=== PATIENT | female | born 1945 | race Caucasian/White ===

== ENCOUNTER 2020-05-20 11:19 | Emergency (ER) | payer MEDICARE, SELFPAY ==
--- NOTE | ~2020-05-20 | XR_ITS ---
XR chest 1V portable 05/20/2020 11:56 Indication: Shortness of breath and chest pain Procedure: AP portable chest Comparison: Comparison to multiple prior studies sequentially, with oldest reviewed study dated 08/03. Findings: Heart size normal. Right basilar atelectasis. No focal pneumonia, edema, pleural effusion o r pneumothorax. There is atherosclerosis of the aorta. Impression: 1: No acute cardiopulmonary disease. Reviewed, dictated and finalized at location B. Impression: 1: No acute cardiopulmonary disease.
--- NOTE | 2020-05-20 11:31 | ECG_ITS ---
Measurements Intervals [place] Rate: 68 P: 77 ND: 190 QRS: 66 QRSD: 102 T: 98 QT: 393 QTc: 420 Interpretive Statements SINUS RHYTHM EARLY PRECORDIAL R/S TRANSITION NONSPECIFIC T-WAVE ABNORMALITY- LAT/HIGH LAT LEADS BORDERLINE ECG Electronically Signed On 05-20-2020 11:50:57 CDT by Manjit Swain D.O.
--- NOTE | 2020-05-20 11:35 | ED.CHESTPAIN ---
HPI - Chest Pain General Chief Complaint: Chest Pain Stated Complaint: Trouble breathing chest pain left arm pain Time Seen by Provider: 05/20/20 11:35 Source: patient Mode of arrival: ambulatory Limitations: no limitations History of Present Illness HPI narrative: 74-year-old woman with a history of atrial fibrillation comes in today complaining of pain in her chest that radiates to her left arm, even beyond the elbow. Patient states that started approximately 9:00 a.m.. She feels short of breath, nauseated, lightheaded and sweaty. She denies syncope. She states that she often feels short of breath. MD complaint: chest pain Onset (ago): hour(s) (2.5) Timing of current episode: episodic and other ( Patient is vague about how often she has episodes of shortness of breath and or chest pain) Prior episodes: Yes Onset: during rest Pain location: substernal Pain radiation: left arm Severity: moderate Quality: tightness Relieving factors: nothing Exacerbating factors: nothing Associated symptoms: nausea, diaphoresis and dyspnea Treatment prior to arrival: none Risk Factors Coronary artery disease risk factors: smoking history, hyperlipidemia and hypertension Related Data Home Medications Medication Instructions Recorded Confirmed alprazolam 0.5 mg PO PRN PRN 05/20/20 05/20/20 aspirin [Adult Aspirin Regimen] 81 mg PO DAILY 05/20/20 05/20/20 losartan-hydrochlorothiazide 1 tablet PO DAILY 05/20/20 05/20/20 pravastatin 20 mg PO DAILY 05/20/20 05/20/20 propafenone 150 mg PO Q8H 05/20/20 05/20/20 Allergies Allergy/AdvReac Type Severity Reaction Status Date / Time amoxicillin [From Augmentin] AdvReac Fatigued Verified 05/20/20 12:09 clavulanic acid AdvReac Fatigued Verified 05/20/20 12:09 [From Augmentin] montelukast AdvReac Abdominal Verified 05/20/20 12:09 Pain Review of Systems Constitutional: Constitutional: Denies chills and Denies fever(s) Eyes: Eyes: Denies change in vision and Denies photophobia ENT: Denies dysphagia, Denies nasal congestion and Denies sore throat Cardiovascular: Cardiovascular: Reports as per HPI, Reports chest pain and Reports radiating jaw, neck or arm pain Respiratory: Respiratory: Denies cough, Reports dyspnea and Denies wheezing Gastrointestinal: Gastrointestinal: Denies abdominal pain, Reports nausea and Denies vomiting Genitourinary: Genitourinary: Denies nocturia and Denies dysuria Musculoskeletal: Musculoskeletal: Denies arthralgias and Denies joint swelling Integumentary/Breasts: Skin/Breast: Denies pruritus, Denies erythema and Denies rash Neurologic: Denies vertigo, Denies dizziness and Denies syncope Psychiatric: Psychiatric: Reports anxiety and Denies depression Hematologic/Lymphatic: Hematologic/Lymphatic: Denies easy bleeding and Denies easy bruising Allergic/Immunologic: Allergic/Immunologic: Denies lip swelling and Denies wheezing PMFSH Past Medical History Medical History Anxiety Chronic vertigo COPD (chronic obstructive pulmonary disease) Diverticulosis GERD (gastroesophageal reflux disease) Hypercholesteremia Hypertension Low back pain Normal nuclear stress test 03/2017 Paroxysmal atrial fibrillation Renal cyst, right Surgical History Surgical History H/O cardiac radiofrequency ablation for afib History of repair of hiatal hernia Social History Social History Smoking status: Current every day smoker Alcohol intake: never Substance use: never Living arrangements: with family Exam Const: Other: Moderate acute distress. Anxious, tearful at times. HENMT: Mouth: Yes moist mucous membranes Throat: posterior oropharynx normal Eyes: Conjunctivae: conjunctivae normal Pupils: Equal, round and reactive pupils present EOM: EOMs intact bilaterally Resp: Effort &
[2020-05-20 11:40] VITALS: BP 176/92; PULSE 70; RESP 14; TEMP 36.8; O2SAT 95
[2020-05-20] MEDS: ASPIRIN 81 MG CHEWABLE TABLET 324 MG PO (11:46)
[2020-05-20] MEDS: ONDANSETRON INJ 4 MG/2 ML VIAL IV PUSH (11:47)
[2020-05-20] MEDS: NITROGLYCERIN OINTMENT 1 INCH DOSE 0.5 INCH TRANSDERM (11:47)
--- NOTE | 2020-05-20 11:52 | PC.NURSE ---
morphine on hold to see if nitropaste helps chest pain. Pt states that she does not want anything that will keep her from driving herself home because she is fine and she just wants to go home and go to bed and she does not want to stay here. edp aware.
[2020-05-20 11:53] LABS: Basophils Absolute Auto 0.04 K/mm3 (0.00-0.10); Basophils Percent Auto 0.4 % (0.0-1.0); Hematocrit 41.6 % (35.0-42.0); Hemoglobin 14.8 g/dL (11.7-13.8); Immature Granulocyte Absolute 0.03 K/mm3 (0.00-0.00); Immature Granulocyte Percent A 0.3 % (0.0-0.0); Lymphocytes Absolute Auto 3.74 K/mm3 (1.10-4.50); Lymphocytes Percent Auto 36.7 % (18.0-42.0); Mean Corpuscular HGB Conc 35.6 g/dL (32.0-36.0); Mean Corpuscular Hemoglobin 33.6 pg (27.0-31.0); Mean Corpuscular Volume 94.3 fL (78.0-102.0); Mean Platelet Volume 8.6 fl (9.2-11.8); Monocytes Absolute Auto 0.62 K/mm3 (0.10-0.90); Monocytes Percent Auto 6.1 % (2.0-11.0); Neutrophils Absolute Auto 5.7 K/mm3 (1.7-7.2); Neutrophils Percent Auto 55.5 % (50.0-70.0); Platelet Count Result 271 K/mm3 (150-420); Red Blood Count 4.41 M/mm3 (4.20-5.40); Red Cell Distribution Width 12.7 % (11.6-14.4); White Blood Count 10.2 K/mm3 (4.8-10.8)
[2020-05-20 11:55] VITALS: BP 156/95; PULSE 65; RESP 14; TEMP 36.8; O2SAT 95
[2020-05-20 12:06] LABS: Partial Thromboplastin Time 24.7 SEC (22.3-31.6); Prothrombin Time 10.3 Seconds (9.64-11.0)
[2020-05-20 12:10] LABS: Alanine Aminotransferase 28 U/L (14-59); Albumin Level 3.7 g/dL (3.4-5.0); Alkaline Phosphatase 71 U/L (46-116); Anion Gap 10.4 mmol/L (7-16); Aspartate Amino Transferase 24 U/L (15-37); Bilirubin,Total 0.7 mg/dL (0.00-1.00); Blood Urea Nitrogen 12 mg/dL (7-18); Calcium 8.9 mg/dL (8.5-10.1); Carbon Dioxide 28 mmol/L (21-32); Chloride 95 mmol/L (98-108); Estimated CRCL calculation 54 ml/min; Estimated Glomerular Filt Rate > 60; Glucose 111 mg/dL (70-99); Lipase 72 U/L (73-393); Osmolality Calculated 270 mOsm/kg (285-295); Potassium 3.4 mmol/L (3.5-5.1); Sodium 130 mmol/L (136-145); Total Protein 6.9 g/dL (6.4-8.2)
[2020-05-20 12:12] LABS: BNP 47.3 pg/mL (0-100)
[2020-05-20 12:13] LABS: D Dimer 0.92 mg/L (0.19-0.50)
[2020-05-20 12:15] LABS: Troponin I 0.23 ng/mL (0.00-0.056)
[2020-05-20 12:17] LABS: Add Urine Microscopic? NO; Appearance Urine Clear (Clear); Bilirubin Urine Negative (Negative); Blood Urine Negative (Negative); Color Urine Yellow (Yellow); Glucose Urine UA Negative (Negative); Ketones Urine Negative (Negative); Leukocyte Esterase Ur Negative LEU/UL (Negative); Nitrate Urine Negative (Negative); Protein Urine Negative (Negative); Specific Grav Ur 1.015 (1.010-1.020); Urobilinogen Urine 0.2 mg/dL (0.2-1.0); pH Urine 6.5 (5.0-8.0)
[2020-05-20 12:18] VITALS: BP 140/77; PULSE 63; RESP 20; O2SAT 95
--- NOTE | 2020-05-20 12:21 | PC.NURSE ---
Pt states she is feeling better and is ready to go home. Pt advised that edp will be in to speak with her about her results shortly. Pts home care chaplain Dr. Costa contacted for consult of NSTEMI.
[2020-05-20 12:25] LABS: Amphetamine Screen Urine Negative (Negative); Barbiturate Screen Urine Negative (Negative); Benzodiazepines Screen Urine Positive (Negative); Cannabinoid Screen Urine Negative (Negative); Cocaine Screen Urine Negative (Negative); Methadone Screen Urine Negative (Negative); Opiate Screen Urine Negative (Negative); Phencyclidine Screen Urine Negative (Negative)
[2020-05-20] MEDS: HEPARIN SODIUM 5,000 UNITS/ML VIAL 4000 UNITS IV PUSH (12:41)
[2020-05-20] MEDS: HEPARIN SOD/D5W 100 UNITS/ML 25,000 UNITS/250 ML BAG 9 UNITS (12:45)
--- NOTE | 2020-05-20 12:45 | PC.NURSE ---
Dr. Lovett speaking with Dr. De Paz at [facility]. 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
--- NOTE | 2020-05-20 13:00 | PC.NURSE ---
Pt c/o headache, morphine offered. pt declined
[2020-05-20 13:34] VITALS: PULSE 72
[2020-05-20] MEDS: METOPROLOL TARTRATE 25 MG TABLET PO (13:34)
--- NOTE | 2020-05-20 13:37 | PC.NURSE ---
Roopa from [facility] called and room assignment received. Pt to go to ICU room 5.
[2020-05-20 14:11] VITALS: BP 149/66; PULSE 66; RESP 18; O2SAT 95
== END 2020-05-20 14:16 | disposition short-term general hospital (02) ==
PROVIDERS: Emergency Provider Emergency Medicine; PCP Internal Medicine
DX: I21.4 Non-ST elevation (NSTEMI) myocardial infarction (principal); E87.1 Hypo-osmolality and hyponatremia; F41.9 Anxiety disorder, unspecified; I10 Essential (primary) hypertension; J44.9 Chronic obstructive pulmonary disease, unspecified; K21.9 Gastro-esophageal reflux disease without esophagitis; E78.00 Pure hypercholesterolemia, unspecified; F17.200 Nicotine dependence, unspecified, uncomplicated; Z79.899 Other long term (current) drug therapy; R06.02 Shortness of breath
CPT/HCPCS: 36415; 71045; 80053; 80307; 81003; 83690; 83880; 84484; 85025; 85380; 85610; 85730; 93005; 96365; 96375; 99285; A9270; J1644; J2405

== ENCOUNTER 2020-07-22 12:38 | Outpatient (CLI) | payer MEDICARE, SELFPAY ==
[2020-07-22 13:22] LABS: BNP 80.9 pg/mL (0-100)
[2020-07-22 13:40] LABS: Anion Gap 8 mmol/L (8-16); Blood Urea Nitrogen 10 mg/dL (7-18); Calcium 8.8 mg/dL (8.5-10.1); Carbon Dioxide 30 mmol/L (21-32); Chloride 100 mmol/L (98-108); Estimated Glomerular Filt Rate > 60; Glucose 115 mg/dL (70-99); Osmolality Calculated 286 mOsm/kg (285-295); Potassium 3.7 mmol/L (3.5-5.1); Sodium 138 mmol/L (136-145)
== END 2020-07-22 12:39 | disposition home or self-care (01) ==
LOC: CHSLAB 12:40
PROVIDERS: PCP Internal Medicine; Visit Provider Internal Medicine Cardiovascular Disease
DX: I25.10 Atherosclerotic heart disease of native coronary artery without angina pectoris (principal); R06.02 Shortness of breath; J44.9 Chronic obstructive pulmonary disease, unspecified
CPT/HCPCS: 36415; 80048; 83880

== ENCOUNTER 2021-01-14 09:46 | Outpatient (CLI) | payer MEDICARE, SELFPAY ==
--- NOTE | ~2021-01-14 | MR_ITS ---
EXAMINATION: MR lumbar spine wo con DATE: 01/14/2021 10:58 INDICATION: Lumbar radiculopathy. TECHNIQUE: Magnetic resonance imaging (MRI) of the lumbar spine was performed without intravenous con trast. Sequences included sagittal T2-weighted FSE, sagittal T2-weighted FS FSE, sagittal T1-weighted FSE, and axial T2-weighted FSE. COMPARISON: None FINDINGS: There is 10 degrees dextroscoliosis of lumbar spine. Vertebral body heights are normal. The re is mildly decreased disc height at L1-L2 and L2-L3 and moderately decreased disc height at L4-L5. The distal spinal cord signal intensity is normal. The conus medullaris is at L1. There is an 8.1 cm cyst in right kidney. The following disc levels are specifically discussed: L1-L2: The disc is bulging and has an annular fissure. There is mild right facet joint osteoarthritis . There is no neural foraminal stenosis. There is mild central canal stenosis. L2-L3: The disc is bulging. There is moderate right and mild left facet joint osteoarthritis. There i s mild bilateral neural foraminal stenosis. There is mild central canal stenosis. L3-L4: The disc is bulging and has an annular fissure. There is mild right and moderate left facet colton int osteoarthritis. There is mild right and moderate left neural foraminal stenosis. There is mild ce ntral canal stenosis. L4-L5: The disc is bulging and has an annular fissure. There is severe bilateral facet joint osteoart hritis. There is moderate bilateral neural foraminal stenosis. There is mild central canal stenosis. L5-S1: There is a left foraminal protrusion. There is severe right and moderate left facet joint oste oarthritis. There is mild bilateral neural foraminal stenosis. There is no central canal stenosis. IMPRESSION: 1. Moderate lumbar spondylosis. 2. Lumbar dextroscoliosis. Reviewed, dictated and finalized at location A. [employer]
--- NOTE | ~2021-01-14 | US_ITS ---
EXAMINATION: US carotid duplex BI DATE: 01/14/2021 12:47 INDICATION: Carotid stenosis. TECHNIQUE: Grayscale, color Doppler, and pulsed Doppler images of the cervical carotid arteries were obtained. The degree of vessel stenosis is placed in one of the following categories: normal, <50%, 5 0-69%, >=70% but less than near-occlusion, near-occlusion, or total occlusion. Note that percent sten osis relative to normal distal artery lumen diameter is indirectly measured from velocity measurement s as described by Tomas, et al. Radiology 2003; 229:340-346. COMPARISON: Ultrasound 09/06/2017 FINDINGS: RIGHT: The right common carotid artery (CCA) peak systolic velocity (PSV) is 76 cm/s. The right internal car otid artery (ICA) PSV is 60 cm/s. The right ICA end-diastolic velocity (EDV) is 23 cm/s. The right IC A/CCA PSV ratio is 0.8. Grayscale and color Doppler images yield an estimate of <50% diameter reducti on from plaque in the ICA. There is antegrade flow in the right vertebral artery. LEFT: The left CCA PSV is 65 cm/s. The left ICA PSV is 54 cm/s. The left ICA EDV is 18 cm/s. The left ICA/C CA PSV ratio is 0.8. Grayscale and color Doppler images yield an estimate of <50% diameter reduction from plaque in the ICA. There is antegrade flow in the left vertebral artery. IMPRESSION: 1. <50% stenosis in the right internal carotid artery. 2. <50% stenosis in the left internal carotid artery. Reviewed, dictated and finalized at location A. 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
== END 2021-01-14 09:47 | disposition home or self-care (01) ==
LOC: CHSIMG 09:48
PROVIDERS: PCP Internal Medicine; Visit Provider Internal Medicine
DX: M54.9 Dorsalgia, unspecified (principal); M54.10 Radiculopathy, site unspecified; M48.00 Spinal stenosis, site unspecified; I65.29 Occlusion and stenosis of unspecified carotid artery
CPT/HCPCS: 72148; 93880

== ENCOUNTER 2021-03-29 14:19 | Emergency (ER) | payer MEDICARE, SELFPAY ==
[2021-03-29] VITALS (9 sets, daily range): BP systolic 91–114; BP diastolic 54–78; PULSE 74–98; RESP 20; TEMP 36.7; O2SAT 93–100
--- NOTE | ~2021-03-29 | CT_ITS ---
EXAMINATION: CT abdomen pelvis w con INDICATION: Abdominal pain TECHNIQUE: Computed tomographic images of the abdomen and pelvis were obtained after the administrati on of 100 cc of Omnipaque 350 intravenous contrast. The dose-length product (DLP) was 449.72 mGy-cm. Automated exposure control and iterative reconstruction technique were employed. COMPARISON: 05/15/2019 FINDINGS: Minimal dependent atelectasis is present in the lung bases. The heart size is normal. Calci fied coronary artery atherosclerosis is noted. There are surgical changes near the gastroesophageal j unction. The gallbladder is surgically absent. There is a 5 mm cyst of the right hepatic lobe. The sp bernarda, pancreas, and adrenal glands are normal. The left kidney is unremarkable. There is a 7.7 cm cys t of the otherwise normal right kidney. There is calcified atherosclerosis of the aorta and many of t he other arteries. There is extensive colonic diverticulosis. There is wall thickening of the ascendi ng colon near the junction with the terminal ileum with adjacent inflammatory change and foci of extr aluminal gas. No pathologically enlarged abdominal or pelvic lymph nodes are identified. There is mil d dilation at the distal aspect of the second portion of the duodenum without focal transition, likel y ileus. There is severe lumbar spondylosis. IMPRESSION: 1. Findings consistent with perforated diverticulitis of the ascending colon near the terminal ileum. These findings were discussed with Dr. Nahid Mir MD in the Emergency Department at 1645 hours on 03/29/2021. Reviewed, dictated and finalized at location A. IMPRESSION: 1. Findings consistent with perforated diverticulitis of the ascending colon ne ar the terminal ileum. These findings were discussed with Dr. Nahid Mir MD [facility] the Emergency Department at 1645 hours on 03/29/2021.
--- NOTE | 2021-03-29 15:07 | ED.WEAKNESS ---
HPI - Weakness General Chief complaint: Weakness Stated complaint: weak low bp Time Seen by Provider: 03/29/21 14:50 Source: patient Mode of arrival: ambulatory Limitations: no limitations History of Present Illness HPI Narrative: Patient comes in with ongoing, severe, RLQ abdominal pain which has been going on for several days. It has been worse today, which brings her in. It has been sharp with stabbing pain in the RLQ and also in the right flank, over the kidney area. No fever, no chills. She has been nauseated today as well for the past several hours. Nothing has helped the pain at home. No modifying factors. no other associated signs or symptoms. MD Complaint: generalized weakness Onset (ago): day(s) Duration: constant and other (RLQ pain for the past 48 hours, worse today) Migration: none Severity: moderate Quality: sharp Relieving factors: rest Exacerbating factors: movement Context: recent surgery Associated symptoms: nausea/vomiting and other (RLQ abdominal pain) Related Data Home Medications Medication Instructions Recorded Confirmed losartan-hydrochlorothiazide 1 tablet PO DAILY 05/20/20 03/29/21 pravastatin 20 mg PO DAILY 05/20/20 03/29/21 propafenone 150 mg PO Q8H 05/20/20 03/29/21 Allergies Allergy/AdvReac Type Severity Reaction Status Date / Time amoxicillin [From Augmentin] AdvReac Fatigued Verified 03/29/21 16:16 clavulanic acid AdvReac Fatigued Verified 03/29/21 16:16 [From Augmentin] montelukast AdvReac Abdominal Verified 03/29/21 16:16 Pain Review of Systems Constitutional: Constitutional: Reports no additional constitutional complaints Eyes: Eyes: Reports no additional eye complaints ENT: Reports system reviewed and no additional complaints, except as documented Cardiovascular: Cardiovascular: Reports no additional cardiovascular complaints Respiratory: Respiratory: Reports no additional respiratory complaints Gastrointestinal: Gastrointestinal: Reports no additional gastrointestinal complaints and Reports abdominal pain Genitourinary: Genitourinary: Reports no additional female genitourinary complaints Musculoskeletal: Musculoskeletal: Reports no additional musculoskeletal complaints Integumentary/Breasts: Skin/Breast: Reports system reviewed and no additional complaints, except as docu Neurologic: Reports system reviewed and no additional complaints, except as documented Psychiatric: Psychiatric: Reports no additional psychiatric complaints Endocrine: Endocrine: Reports no additional endocrine complaints Hematologic/Lymphatic: Hematologic/Lymphatic: Reports no additional hematologic/lymphatic complaints Allergic/Immunologic: Allergic/Immunologic: Reports no additional allergic/immunologic complaints [facility] Past Medical History Medical History Anxiety Chronic vertigo COPD (chronic obstructive pulmonary disease) Diverticulosis GERD (gastroesophageal reflux disease) Hypercholesteremia Hypertension Low back pain Normal nuclear stress test 03/2017 Paroxysmal atrial fibrillation Renal cyst, right Surgical History Surgical History H/O cardiac radiofrequency ablation for afib History of repair of hiatal hernia Family History Family History (Updated 03/29/21 @ 18:07 by Nahid Mir MD) Other Family history non-contributory Social History Social History Smoking status: Current every day smoker Alcohol intake: never Substance use: never Gender identity (if verbalized by the patient): Female Exam Const: General: healthy appearing, no acute distress and alert Orientation/consciousness: patient oriented x3 HENMT: Head: normal to inspection Ears: external ears normal and TM's normal bilaterally General nose exam: Normal external nose present Mouth: Yes Normal oral and palatal mucosa pres
[2021-03-29] MEDS: KETOROLAC 30 MG/ML VIAL (*BKC) IV PUSH (15:10)
[2021-03-29] MEDS: ONDANSETRON INJ 4 MG/2 ML VIAL IV PUSH (15:10)
[2021-03-29 15:19] LABS: Add Urine Microscopic? YES; Appearance Urine Sl Cloudy (Clear); Bilirubin Urine 1+ (Negative); Blood Urine Negative (Negative); Glucose Urine UA Negative (Negative); Ketones Urine 1+ (Negative); Leukocyte Esterase Ur Trace LEU/UL (Negative); Nitrate Urine Negative (Negative); Protein Urine 2+ (Negative); Specific Grav Ur >= 1.030 (1.010-1.020)
[2021-03-29 15:21] LABS: Basophils Absolute Auto 0.04 K/mm3 (0.00-0.10); Basophils Percent Auto 0.3 % (0.0-1.0); Eosinophils Absolute Auto 0.02 K/mm3 (0.02-0.50); Eosinophils Percent Auto 0.1 % (1.0-6.0); Hematocrit 39.9 % (35.0-42.0); Hemoglobin 14.1 g/dL (11.7-13.8); Immature Granulocyte Absolute 0.11 K/mm3 (0.00-0.00); Immature Granulocyte Percent A 0.7 % (0.0-0.0); Lymphocytes Absolute Auto 2.63 K/mm3 (1.10-4.50); Mean Corpuscular HGB Conc 35.3 g/dL (32.0-36.0); Mean Corpuscular Hemoglobin 33.7 pg (27.0-31.0); Mean Corpuscular Volume 95.2 fL (78.0-102.0); Mean Platelet Volume 8.7 fl (9.2-11.8); Monocytes Absolute Auto 1.05 K/mm3 (0.10-0.90); Monocytes Percent Auto 6.8 % (2.0-11.0); Neutrophils Absolute Auto 11.6 K/mm3 (1.7-7.2); Neutrophils Percent Auto 75.1 % (50.0-70.0); Platelet Count Result 263 K/mm3 (150-420); Red Blood Count 4.19 M/mm3 (4.20-5.40); Red Cell Distribution Width 13.5 % (11.6-14.4); White Blood Count 15.5 K/mm3 (4.8-10.8)
[2021-03-29 15:22] LABS: Color Urine Amber (Yellow); RBC Urine None seen /hpf (0-2)
[2021-03-29 15:23] LABS: Bacteria Urine 1+ /hpf; Squamous Epithelial Cell Urine Few /hpf (Few)
[2021-03-29 15:33] LABS: Alanine Aminotransferase 31 U/L (14-59); Albumin Level 3.3 g/dL (3.4-5.0); Alkaline Phosphatase 91 U/L (46-116); Amylase 24 U/L (25-115); Anion Gap 9 mmol/L (8-16); Aspartate Amino Transferase 17 U/L (15-37); Bilirubin,Total 0.9 mg/dL (0.00-1.00); Blood Urea Nitrogen 13 mg/dL (7-18); Carbon Dioxide 27 mmol/L (21-32); Chloride 98 mmol/L (98-108); Estimated CRCL calculation 32 ml/min; Estimated Glomerular Filt Rate 44; Glucose 114 mg/dL (70-99); Lipase 36 U/L (73-393); Osmolality Calculated 279 mOsm/kg (285-295); Potassium 3.6 mmol/L (3.5-5.1); Sodium 134 mmol/L (136-145); Total Protein 6.7 g/dL (6.4-8.2)
[2021-03-29 15:35] LABS: Lactic Acid Reflex 0.7 mmol/L (0.4-2.0)
[2021-03-29] MEDS: SODIUM CHLORIDE 0.9% IV 1,000 ML 999 ML IV CONT (16:10)
[2021-03-29] MEDS: metroNIDAZOLE 500 MG/ISO 100ML 500 MG/100 ML BAG 100 MG IVPB (17:49)
[2021-03-29] MEDS: NICOTINE (*PBKC) 21 MG PATCH 1 PATCH TRANSDERM (17:49)
[2021-03-29] MEDS: SODIUM CHLORIDE 0.9% IV 1,000 ML 200 ML IV CONT (19:40)
[2021-03-29] MEDS: PANTOPRAZOLE SODIUM IV 40 MG VIAL IV PUSH (19:45)
== END 2021-03-29 21:24 | disposition short-term general hospital (02) ==
PROVIDERS: Emergency Provider Emergency Medicine; PCP Internal Medicine
DX: K57.92 Diverticulitis of intestine, part unspecified, without perforation or abscess without bleeding (principal); K63.1 Perforation of intestine (nontraumatic); K21.9 Gastro-esophageal reflux disease without esophagitis; E78.00 Pure hypercholesterolemia, unspecified; I10 Essential (primary) hypertension; F17.200 Nicotine dependence, unspecified, uncomplicated
CPT/HCPCS: 36415; 74177; 80053; 81001; 82150; 83605; 83690; 85025; 87040; 87086; 96361; 96365; 96367; 96375; 99285; A9270; C9113; J1885; J2405; J2543; J7030; Q9967

== ENCOUNTER 2021-04-17 09:28 | Outpatient (CLI) | payer MEDICARE, SELFPAY ==
--- NOTE | ~2021-04-17 | CT_ITS ---
EXAMINATION: CT abdomen pelvis w con DATE: 04/17/2021 10:29 INDICATION: Lower abdominal pain. Loss of appetite. Nausea. Follow-up diverticular abscess. TECHNIQUE: Computed tomography (CT) of the abdomen and pelvis was performed with 100 cc Omnipaque 350 intravenous contrast. The dose-length product was 450.19 mGy-cm. Automated exposure control and iter ative reconstruction technique were employed. COMPARISON: CT dated 03/29/2021. FINDINGS: Lung bases are unremarkable. Heart size normal. No significant pleural or pericardial effus ion. There are surgical changes at the gastroesophageal junction. The spleen, pancreas, adrenal glands and left kidney are unremarkable. There are small subcentimeter hypodensities of the liver, most likely benign cysts or hemangiomas. There has been improvement of wa ll thickening of the cecum as well as pericecal inflammation and fluid, consistent with resolving div erticulitis. No obstruction. There is mild degenerative changes of the hips. There is lower lumbar an d thoracic spondylosis. There is moderate osteoarthritis of the hips. There is moderate diffuse ather osclerosis. No evidence for aneurysm. There is a right renal cyst measuring measuring 7.8 cm. IMPRESSION: 1. Improving cecal wall thickening as well as surrounding inflammation and fluid, consistent with res olving cecal diverticulitis. Reviewed, dictated and finalized at location B. IMPRESSION: 1. Improving cecal wall thickening as well as surrounding inflammation and flui d, consistent with resolving cecal diverticulitis.
[2021-04-17 09:39] LABS: Basophils Absolute Auto 0.05 K/mm3 (0.00-0.10); Basophils Percent Auto 0.5 % (0.0-1.0); Eosinophils Absolute Auto 0.05 K/mm3 (0.02-0.50); Eosinophils Percent Auto 0.5 % (1.0-6.0); Hematocrit 44.3 % (35.0-42.0); Hemoglobin 15.1 g/dL (11.7-13.8); Immature Granulocyte Absolute 0.04 K/mm3 (0.00-0.00); Immature Granulocyte Percent A 0.4 % (0.0-0.0); Lymphocytes Absolute Auto 3.94 K/mm3 (1.10-4.50); Lymphocytes Percent Auto 39.9 % (18.0-42.0); Mean Corpuscular HGB Conc 34.1 g/dL (32.0-36.0); Mean Corpuscular Hemoglobin 33.1 pg (27.0-31.0); Mean Corpuscular Volume 97.1 fL (78.0-102.0); Mean Platelet Volume 8.1 fl (9.2-11.8); Monocytes Absolute Auto 0.58 K/mm3 (0.10-0.90); Monocytes Percent Auto 5.9 % (2.0-11.0); Neutrophils Absolute Auto 5.2 K/mm3 (1.7-7.2); Neutrophils Percent Auto 52.8 % (50.0-70.0); Platelet Count Result 348 K/mm3 (150-420); Red Blood Count 4.56 M/mm3 (4.20-5.40); Red Cell Distribution Width 13.8 % (11.6-14.4); White Blood Count 9.9 K/mm3 (4.8-10.8)
[2021-04-17 09:42] LABS: Add Urine Microscopic? YES; Appearance Urine Clear (Clear); Bilirubin Urine Negative (Negative); Blood Urine Negative (Negative); Color Urine Yellow (Yellow); Glucose Urine UA Negative (Negative); Ketones Urine Negative (Negative); Leukocyte Esterase Ur Trace (Negative); Nitrate Urine Negative (Negative); Protein Urine Negative (Negative); Specific Grav Ur 1.025 (1.010-1.020); Urobilinogen Urine 0.2 mg/dL (0.2-1.0)
[2021-04-17 09:44] LABS: RBC Urine None seen /hpf (0-2); Squamous Epithelial Cell Urine Few /hpf (Few); WBC Urine 0-3 /hpf (0-3)
[2021-04-17 09:45] LABS: Bacteria Urine Trace /hpf; Mucus Urine Few /lpf
[2021-04-17 09:56] LABS: Alanine Aminotransferase 31 U/L (14-59); Albumin Level 3.8 g/dL (3.4-5.0); Alkaline Phosphatase 80 U/L (46-116); Amylase 33 U/L (25-115); Anion Gap 8 mmol/L (8-16); Aspartate Amino Transferase 20 U/L (15-37); Bilirubin,Total 0.6 mg/dL (0.00-1.00); Blood Urea Nitrogen 8 mg/dL (7-18); Calcium 9.4 mg/dL (8.5-10.1); Carbon Dioxide 30 mmol/L (21-32); Chloride 96 mmol/L (98-108); Estimated Glomerular Filt Rate > 60; Glucose 107 mg/dL (70-99); Lipase 47 U/L (73-393); Osmolality Calculated 276 mOsm/kg (285-295); Sodium 134 mmol/L (136-145); Total Protein 7.1 g/dL (6.4-8.2)
== END 2021-04-17 09:29 | disposition home or self-care (01) ==
PROVIDERS: PCP Internal Medicine; Visit Provider Internal Medicine
DX: K57.92 Diverticulitis of intestine, part unspecified, without perforation or abscess without bleeding (principal)
CPT/HCPCS: 36415; 74177; 80053; 81001; 82150; 83690; 85025; Q9967

== ENCOUNTER 2021-09-06 08:18 | Emergency (ER) | payer MEDICARE, SELFPAY ==
--- NOTE | ~2021-09-06 | XR_ITS ---
EXAMINATION: XR chest 1V portable EXAM DATE: 09/06/2021 08:42 INDICATION: Neuro symptoms. TECHNIQUE: Portable AP frontal chest x-ray was obtained. Comparison is made to prior examination from 05/20/2020. FINDINGS: The lungs are clear. There are no pleural effusions. Cardiac silhouette is prominent but magnified on this AP technique. There is no pneumothorax suspected. The bones and soft tissues are unremarkable. IMPRESSION: No acute cardiopulmonary findings. Reviewed, dictated and finalized at location A.
--- NOTE | ~2021-09-06 | CT_ITS ---
EXAMINATION: CT brain wo con EXAM DATE: 09/06/2021 08:36 INDICATION: Right-sided facial droop, body numbness. TECHNIQUE: Spiral CT of the head was performed without contrast. Axial, coronal and sagittal images were reviewed. The dose-length product (DLP) for this examination was 605.33 mGy-cm. The exposure w as tailored according to patient size, and iterative reconstruction (ASIR) was used as additional dos e reduction technique. There is no prior study for comparison. FINDINGS: There is no acute intraparenchymal hemorrhage. No evidence of intraparenchymal brain mass lesion. No evidence of acute infarction. Please note that initial head CT has limited sensitivity f or small or acute infarctions. There is mild periventricular and subcortical hypodensity, nonspecific but probably related to small vessel ischemic disease. There is mild to moderate prominence of the sulci and ventricles related to cerebral atrophy. There is intracranial carotid arteriosclerosis. There are no extra-axial collections. There is no mass effect or midline shift. Patient has had bi lateral ocular lens surgery. Soft tissue is unremarkable. Mild to moderate ethmoid and right maxill jignesh sinus, left sphenoid mucoperiosteal thickening. IMPRESSION: 1. No acute intracranial findings. 2. Chronic age related findings. Reviewed, dictated and finalized at location A.
--- NOTE | 2021-09-06 08:28 | ECG_ITS ---
Measurements Intervals [place] Rate: P: OR: QRS: QRSD: T: QT: QTc: Interpretive Statements SINUS RHYTHM INCOMPLETE RIGHT BUNDLE BRANCH BLOCK T WAVE ABNORMALITY IN LATERAL LEADS- CONSIDER ISCHEMIA ABNORMAL ECG Electronically Signed On 09-07-2021 10:38:00 CDT by Manjit Swain D.O.
[2021-09-06 08:51] LABS: Basophils Absolute Auto 0.05 K/mm3 (0.00-0.10); Basophils Percent Auto 0.6 % (0.0-1.0); Eosinophils Percent Auto 1.3 % (1.0-6.0); Hematocrit 45.6 % (35.0-42.0); Hemoglobin 15.7 g/dL (11.7-13.8); Immature Granulocyte Absolute 0.03 K/mm3 (0.00-0.00); Immature Granulocyte Percent A 0.4 % (0.0-0.0); Lymphocytes Absolute Auto 2.47 K/mm3 (1.10-4.50); Lymphocytes Percent Auto 31.9 % (18.0-42.0); Mean Corpuscular HGB Conc 34.4 g/dL (32.0-36.0); Mean Corpuscular Hemoglobin 32.3 pg (27.0-31.0); Mean Corpuscular Volume 93.8 fL (78.0-102.0); Mean Platelet Volume 8.6 fl (9.2-11.8); Monocytes Absolute Auto 0.57 K/mm3 (0.10-0.90); Monocytes Percent Auto 7.4 % (2.0-11.0); Neutrophils Absolute Auto 4.5 K/mm3 (1.7-7.2); Neutrophils Percent Auto 58.4 % (50.0-70.0); Platelet Count Result 255 K/mm3 (150-420); Red Blood Count 4.86 M/mm3 (4.20-5.40); White Blood Count 7.8 K/mm3 (4.8-10.8)
--- NOTE | 2021-09-06 09:02 | ED.AMS ---
HPI - Altered Mental Status General Chief Complaint: Altered Mental Status Stated Complaint: numbness in right leg, arm and R side of face Time Seen by Provider: 09/06/21 08:21 Source: patient, family and RN notes reviewed Mode of arrival: wheelchair Limitations: no limitations History of Present Illness HPI narrative: Right-sided facial weakness + right upper and lower limb weakness and numbness @ 0500. Sxs had resolved by 0630. Pt also had similar sxs last PM. complaint: weakness (mild weakness in the ED) Onset (ago): hour(s) (3 hrs.) Severity: mild Consistency of symptoms: waxing and waning Context: other (sxs were sudden. ) Associated symptoms: headaches and weakness Treatments prior to arrival: other (none.) Related Data Home Medications Medication Instructions Recorded Confirmed losartan-hydrochlorothiazide 1 tablet PO DAILY 05/20/20 09/06/21 pravastatin 20 mg PO DAILY 05/20/20 09/06/21 propafenone 150 mg PO BID 05/20/20 09/06/21 alprazolam 0.5 mg PO BID PRN 09/06/21 09/06/21 meloxicam 15 mg PO DAILY PRN 09/06/21 09/06/21 pantoprazole 40 mg PO DAILY 09/06/21 09/06/21 potassium chloride 10 meq PO DAILY 09/06/21 09/06/21 Allergies Allergy/AdvReac Type Severity Reaction Status Date / Time amoxicillin [From Augmentin] AdvReac Fatigued Verified 09/06/21 08:47 clavulanic acid AdvReac Fatigued Verified 09/06/21 08:47 [From Augmentin] montelukast AdvReac Abdominal Verified 09/06/21 08:47 Pain Review of Systems Review of Systems: All systems reviewed & are unremarkable except as noted in HPI and below Neurologic: Reports headache(s), Reports focal weakness, Reports numbness and Reports weakness PMFSH Past Medical History Medical History Anxiety Chronic vertigo COPD (chronic obstructive pulmonary disease) Diverticulosis GERD (gastroesophageal reflux disease) Hypercholesteremia Hypertension Low back pain Normal nuclear stress test 03/2017 Paroxysmal atrial fibrillation Renal cyst, right Surgical History Surgical History H/O cardiac radiofrequency ablation for afib History of repair of hiatal hernia Family History Family History Other Family history non-contributory Social History Social History Smoking status: Current every day smoker Alcohol intake: never Substance use: never Gender identity (if verbalized by the patient): Female Exam Const: General: healthy appearing, no acute distress and alert Nutritional Appearance: well nourished Orientation/consciousness: patient oriented x3 Limitations: no limitations HENMT: Head: normal to inspection Ears: external ears normal and TM's normal bilaterally General nose exam: Normal external nose present and Normal nares present Mouth: Yes moist mucous membranes Throat: posterior oropharynx normal Eyes: Pupils: Equal, round and reactive pupils present Neck: Neck: normal visual inspection and no lymphadenopathy Chest: Chest palpation & inspection: normal inspection of the chest Resp: Effort & Inspection: normal respiratory effort Auscultation: clear to auscultation bilaterally Cardio: Rate: regular rate Rhythm: regular rhythm GI: GI Palp: Yes Soft to palpation and No Tenderness to palpation present (GI) Percussion: Yes normal to percussion Auscultation: normal bowel sounds : General: Yes no CVA tenderness Back/Spine/Pelvis: Back: no CVA tenderness Skin: General skin exam: normal color Rashes: no rashes Neuro: General: patient oriented x3, moves all extremities, no meningeal signs, no focal motor deficits and CN's II-XI intact bilaterally Other: no facial droop or slurred speech. Extrem: General: normal to inspection and no pedal edema Psych: Mental Status: mental status grossly normal
[2021-09-06] MEDS: SODIUM CHLORIDE 0.9% IV 1,000 ML 150 ML IV CONT (09:10)
[2021-09-06 09:11] LABS: Lactic Acid Reflex 1.2 mmol/L (0.4-2.0)
[2021-09-06 09:12] LABS: Alanine Aminotransferase 22 U/L (14-59); Albumin Level 3.9 g/dL (3.4-5.0); Alkaline Phosphatase 87 U/L (46-116); Anion Gap 9 mmol/L (8-16); Aspartate Amino Transferase 14 U/L (15-37); Bilirubin,Total 0.6 mg/dL (0.00-1.00); Blood Urea Nitrogen 13 mg/dL (7-18); Calcium 8.9 mg/dL (8.5-10.1); Carbon Dioxide 29 mmol/L (21-32); Chloride 98 mmol/L (98-108); Estimated Glomerular Filt Rate > 60; Glucose 112 mg/dL (70-99); Osmolality Calculated 283 mOsm/kg (285-295); Potassium 3.7 mmol/L (3.5-5.1); Sodium 136 mmol/L (136-145); Troponin I 8.2 ng/L (0.00-60.4)
[2021-09-06 09:20] VITALS: BP 160/100; PULSE 84; RESP 16; TEMP 36.2; O2SAT 96
[2021-09-06 10:00] VITALS: BP 148/88; PULSE 78; RESP 16; TEMP 36.5; O2SAT 96
--- NOTE | 2021-09-06 10:02 | PC.NURSE ---
amb steadily to bathroom with minimal assistance. voided without difficulty
[2021-09-06 10:04] LABS: Add Urine Microscopic? NO; Appearance Urine Clear (Clear); Bilirubin Urine Negative (Negative); Blood Urine Negative (Negative); Color Urine Light Yellow (Yellow); Glucose Urine UA Negative (Negative); Ketones Urine Negative (Negative); Leukocyte Esterase Ur Negative (Negative); Nitrate Urine Negative (Negative); Protein Urine Negative (Negative); Specific Grav Ur 1.015 (1.010-1.020); Urobilinogen Urine 0.2 mg/dL (0.2-1.0)
[2021-09-06] MEDS: ACETAMINOPHEN 325 MG TABLET 650 MG PO (10:32)
[2021-09-06 11:00] VITALS: BP 160/95; PULSE 80; RESP 15; TEMP 36.8; O2SAT 97
[2021-09-06 12:07] LABS: SARS-CoV-2 RNA PCR Negative (Negative)
== END 2021-09-06 11:35 | disposition home or self-care (01) ==
PROVIDERS: Emergency Provider Emergency Medicine; PCP Internal Medicine
DX: G45.9 Transient cerebral ischemic attack, unspecified (principal); Z20.822 Contact with and (suspected) exposure to COVID-19; J44.9 Chronic obstructive pulmonary disease, unspecified; K21.9 Gastro-esophageal reflux disease without esophagitis; E78.00 Pure hypercholesterolemia, unspecified; I10 Essential (primary) hypertension; F17.200 Nicotine dependence, unspecified, uncomplicated
CPT/HCPCS: 36415; 70450; 71045; 80053; 81003; 83605; 84484; 85025; 93005; 96360; 96361; 99283; 99284; A9270; C9803; J7030; U0003; U0005

== ENCOUNTER 2022-03-16 08:01 | Outpatient (CLI) | payer MEDICARE, SELFPAY ==
--- NOTE | ~2022-03-16 | CT_ITS ---
EXAMINATION: CT abdomen pelvis w con DATE: 03/16/2022 09:09 INDICATION: Mid to right upper abdominal pain TECHNIQUE: Computed tomography (CT) of the abdomen and pelvis was performed with 100 CC Omnipaque 350 intravenous contrast. Automated exposure control and iterative reconstruction technique were employe d. Exam dose: 410.80 mGy-cm total exam DLP. COMPARISON: 04/17/2021 CT abdomen pelvis FINDINGS: There is mild discoid atelectasis or scarring at the base of the middle lobe and anterior b asilar segment of the right lower lobe. No infiltrate or consolidation at the lung bases. Mild cardiomegaly. No pericardial or pleural effusion. Status post hiatal hernia repair. Status post cholecystectomy. No bile duct or pancreatic duct dilatation. There is an approximately 6 mm right hepatic cyst. The liver, spleen, pancreas and adrenal glands are otherwise unremarkable. Approximately 7.5 cm upper pole right renal cyst. The kidneys are otherwise unremarkable. No urinary tract calculus or hydroureteronephrosis. There is calcification of the abdominal aorta and prominent calcification at the origin the celiac, superior mesenteric and renal arteries. No abdominal aortic a neurysm. There is calcification of the iliac and femoral arteries. No intraperitoneal or retroperitoneal or pelvic mass lesion or adenopathy or ascites. Status post hysterectomy. Surgical clips are noted in the left pelvic area. Surgical clips are noted adjacent to the right colon. There are innumerable diverticula throughout the colon; no CT evidence of diverticulitis. There are fluid containing small bowel segments and some small bowel air-fluid levels which may repre sent enteritis or mild adynamic ileus. No bowel obstruction or intraperitoneal free air. Very small fat-containing umbilical hernia. Diffuse osteopenia. Degenerative changes of the lower thoracic and lumbar spine. Bilateral hip osteoa rthritis. IMPRESSION: Status post partial right colon resection for history of diverticulitis Extensive diverticulosis throughout the colon Nondilated fluid containing small bowel segments and occasional air-fluid levels which may be seconda ry to enteritis or mild adynamic ileus No bowel obstruction or intraperitoneal free air Status post cholecystectomy Status post hiatal hernia repair Status post hysterectomy 6 mm right hepatic cyst and 7.5 cm upper pole right renal cyst Reviewed, dictated and finalized at [facility]. Reviewed, dictated and finalized at location B. IMPRESSION: Status post partial right colon resection for history of diverticu litis Extensive diverticulosis throughout the colon Nondilated fluid containing small bowel segments and occasional air-fluid level s which may be secondary to enteritis or mild adynamic ileus No bowel obstruction or intraperitoneal free air Status post cholecystectomy Status post hiatal hernia repair Status post hysterectomy 6 mm right hepatic cyst and 7.5 cm upper pole right renal cyst
[2022-03-16 08:25] LABS: Estimated Glomerular Filt Rate > 60
== END 2022-03-16 08:02 | disposition home or self-care (01) ==
LOC: CHSIMG 08:03
PROVIDERS: PCP Internal Medicine; Visit Provider Internal Medicine
DX: R10.9 Unspecified abdominal pain (principal)
CPT/HCPCS: 74177; Q9967

== ENCOUNTER 2022-04-28 08:21 | Outpatient (CLI) | payer MEDICARE, SELFPAY ==
--- NOTE | ~2022-04-28 | US_ITS ---
EXAMINATION: US art doppler w press LE BI DATE: 04/28/2022 09:52 INDICATION: Lower limb pain. Peripheral vascular disease risk factors of hypercholesterolemia, hypert ension and smoking. TECHNIQUE: Segmental pressures and plethysmographic and Doppler waveforms of the brachial and lower e xtremity arteries were obtained. COMPARISON: None. FINDINGS: Right and left brachial artery pressures of 152 mm Hg and 154 mm Hg, respectively, are concordant (no rmal difference <= 30 mmHg). The right and left high-thigh pressure indices were unable to be obtaine d due to inability to occlude the vessels in either thigh (normal > 1.2). The right ankle-brachial index (SARAH) is 1.25 (normal >= 0.9-1). The right great toe-brachial index (T BI) is 1.03 (normal >= 0.6-0.8). The right lower extremity segmental pressure gradients are increased between the right posterior tibial artery and the right dorsalis pedis and [id number] popliteal arteries (normal gradients <= 20-30 mmHg between adjacent levels on the same leg or the same levels o n the two legs). Arterial waveforms are triphasic at the right common femoral and superficial femoral arteries and biphasic in the more distal arteries with brisk systolic upstrokes throughout. The left SARAH is 1.08. The left TBI is 0.88. The left lower extremity segmental pressure gradients are increased between the arteries at the left ankle and the left [id number] popliteal artery and ri ght dorsalis pedis artery at the contralateral right ankle. Arterial waveforms are triphasic at the l eft common femoral artery and triphasic at the remaining arteries in the right lower limb with brisk systolic upstrokes throughout. IMPRESSION: 1. Normal SARAH's and TBI's bilaterally. No significant occlusive disease to either lower limb. Reviewed, dictated and finalized at location B. IMPRESSION: 1. Normal SARAH's and TBI's bilaterally. No significant occlusive disease to eith er lower limb.
--- NOTE | ~2022-04-28 | US_ITS ---
EXAMINATION: US venous doppler [facility] DATE: 04/28/2022 10:00 INDICATION: Lower limb pain. TECHNIQUE: Grayscale ultrasound images without and with compression and Doppler ultrasound images of the bilateral lower extremity veins were obtained. COMPARISON: None. FINDINGS: The visualized portions of right common femoral vein, profunda (deep) femoral vein, femoral vein, pop liteal vein, posterior tibial veins, peroneal veins, gastrocnemius vein and greater saphenous vein ou tflow are patent. Subcutaneous varicosities are seen at the above and below the right knee. Right standing venous mapping: reflux seconds duration; vein size. Greater saphenous origin: 0.5 seconds; 5.2 mm. Greater saphenous mid thigh: 0 seconds; 3.6 mm. Greater saphenous above the knee:--- 1 seconds; 6.4 mm. Greater saphenous below the knee:--- 0 seconds; 3.1 mm. Greater saphenous mid calf: 2.0 seconds; 4.0 mm. Greater saphenous at the ankle :------- 0 seconds; 2.6 mm. Lesser saphenous proximally: 0 seconds; 3.2 mm. Lesser saphenous distally: 0 seconds; 2.7 mm. The visualized portions of left common femoral vein, profunda femoral vein, femoral vein, popliteal v ein, posterior tibial veins, peroneal veins, gastrocnemius vein and greater saphenous vein outflow ar e patent. Left standing venous mapping: reflux seconds duration; vein size. Greater saphenous origin: 0 seconds; 6.0 mm. Greater saphenous mid thigh: 0 seconds; 4.1 mm. Greater saphenous above the knee:--- 1 seconds; 2.9 mm. Greater saphenous below the knee:--- 2.0 seconds; 2.6 mm. Greater saphenous mid calf: 2.0 seconds; 4.0 mm. Greater saphenous at the ankle :------- 2.0 seconds; 2.0 mm. Lesser saphenous proximally: 0 seconds; 2.7 mm. Lesser saphenous distally: 0 seconds; 2.0 mm. IMPRESSION: 1. No deep venous thrombosis in either lower limb. 2. Venous reflux of 2 second duration along portions of the right and left greater saphenous veins as detailed above. Reviewed, dictated and finalized at location B. IMPRESSION: 1. No deep venous thrombosis in either lower limb. 2. Venous reflux of 2 second duration along portions of the right and left grea ter saphenous veins as detailed above.
== END 2022-04-28 08:22 | disposition home or self-care (01) ==
LOC: ANHIMG 08:22
PROVIDERS: PCP Internal Medicine; Visit Provider Internal Medicine Cardiovascular Disease
DX: I73.9 Peripheral vascular disease, unspecified (principal); M79.662 Pain in left lower leg; M79.661 Pain in right lower leg; I83.813 Varicose veins of bilateral lower extremities with pain
CPT/HCPCS: 93923; 93970

== ENCOUNTER 2022-10-24 14:13 | Emergency (ER) | payer MEDICARE, SELFPAY ==
--- NOTE | ~2022-10-24 | CT_ITS ---
EXAMINATION: CT abdomen pelvis w con DATE: 10/24/2022 16:35 INDICATION: Right lower back pain. Kidney mass. TECHNIQUE: Computed tomography (CT) of the abdomen and pelvis was performed without intravenous contr ast. Automated exposure control and iterative reconstruction technique were employed. The dose-length product was 619.24 mGy-cm. COMPARISON: 03/16/2022 and 03/29/2021 FINDINGS: Small region of atelectasis at the anteromedial right middle lobe. Heart size is normal. No pericardi al or pleural effusion. Atherosclerotic coronary artery calcifications. Aortic valve calcification. C alcified left hilar lymph nodes consistent with old granulomatous disease. Postoperative changes at t he gastroesophageal junction potentially related to prior Hermilo fundoplication. Cholecystectomy clip s the gallbladder fossa. Unchanged subcentimeter cyst in the right hepatic lobe. Pancreas, spleen, le ft kidney and bilateral adrenal glands are normal. 7.1 cm right renal cyst. Appendix is not visualize d and there are surgical clips near the tip the cecum suggesting prior appendectomy. Additional surgi danay clips in the left hemipelvis. Extensive colonic diverticulosis without adjacent inflammatory stra nding to suggest diverticulitis. No bowel obstruction. Bladder is normal. The uterus is not identifie d and has likely been surgically resected. No free intraperitoneal gas or fluid. No pathologically en larged abdominal or pelvic lymphadenopathy. Mild lumbar dextrocurvature with moderate to severe spond ylosis. Moderate left and mild to moderate right hip osteoarthritis. IMPRESSION: 1. No acute intra-abdominal/pelvic process. 2. Extensive diverticulosis without findings of diverticulitis. Reviewed, dictated and finalized at location A. 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
[2022-10-24 14:13] VITALS: BP 173/102; PULSE 75; RESP 18; TEMP 36.9; O2SAT 95
[2022-10-24 14:15] VITALS: BP 173/102; PULSE 75; RESP 18; TEMP 36.9; O2SAT 95
--- NOTE | 2022-10-24 14:57 | ED.BACK ---
HPI - Back Pain/Injury General Chief Complaint: Back Pain/Injury Stated Complaint: back pain Time Seen by Provider: 10/24/22 14:55 Source: patient Mode of arrival: ambulatory Limitations: no limitations History of Present Illness HPI Narrative: patient is a 76-year-old white female complains of history of chronic back pain has been worse over the last week to 4 days. She has had this for years and was seen by pain management about a year ago in [place] and got injections x3. That did not help. She takes Tylenol 1000 mg twice a day. This is the same pain she has been having for months and years it is just worse. It is worse when she moves around twists or bends. Denies any radiation of her pain. She said 2 weeks ago she had some burning with urination and took some cranberry juice which helped. Although she still having some burning with urination. Denies any numbness or weakness. Denies any problems walking. Denies any fever shortness of breath chest pain abdominal pain. She has a history of a kidney mass and she does not remember which side. She has not had any recent injury or fall. Intermittent. She rates as a 7 or 8. And has periods where it does not bother at all. She says the doctor says her chronic pain is from her arthritis. This pain is similar to her previous pain is just worse. Pertinent past history: prior back pain, recent trauma, kidney stones, back surgery, neurological deficit and arthritis Quality: sharp and stabbing Radiation: none Exacerbating factors: movement Related Data Home Medications Medication Instructions Recorded Confirmed losartan 100 1 tablet PO DAILY 05/20/20 10/24/22 mg-hydrochlorothiazide 25 mg tablet pravastatin 20 mg tablet 20 mg PO DAILY 05/20/20 10/24/22 propafenone 150 mg tablet 150 mg PO BID 05/20/20 10/24/22 alprazolam 0.5 mg tablet 0.5 mg PO BID PRN Anxiety 09/06/21 10/24/22 meloxicam 15 mg tablet 15 mg PO DAILY PRN Anxiety 09/06/21 10/24/22 pantoprazole 40 mg tablet,delayed 40 mg PO DAILY 09/06/21 10/24/22 release potassium chloride 10 mEq 10 meq PO DAILY 09/06/21 10/24/22 tablet,extended release Allergies Allergy/AdvReac Type Severity Reaction Status Date / Time amoxicillin [From Augmentin] AdvReac Fatigued Verified 10/24/22 14:26 clavulanic acid AdvReac Fatigued Verified 10/24/22 14:26 [From Augmentin] montelukast AdvReac Abdominal Verified 10/24/22 14:26 Pain Review of Systems Review of Systems: All systems reviewed & are unremarkable except as noted in HPI and below Constitutional: Constitutional: Denies fever(s) and Denies weakness ENT: Reports system reviewed and no additional complaints, except as documented Cardiovascular: Cardiovascular: Denies chest pain Respiratory: Respiratory: Denies chest congestion, Denies cough and Denies dyspnea Gastrointestinal: Gastrointestinal: Denies abdominal pain, Denies constipation, Denies diarrhea, Denies nausea and Denies vomiting Genitourinary: Genitourinary: Denies hematuria, Denies nocturia, Reports dysuria and Reports pelvic pain Musculoskeletal: Musculoskeletal: Reports no additional musculoskeletal complaints, Reports as per HPI, Reports back pain and Reports muscle cramps Neurologic: Reports system reviewed and no additional complaints, except as documented, Denies focal weakness, Denies numbness and Denies weakness PMFSH Past Medical History Medical History Anxiety Chronic vertigo COPD (chronic obstructive pulmonary disease) Diverticulosis GERD (gastroesophageal reflux disease) Hypercholesteremia Hypertension Low back pain Normal nuclear stress test 03/2017 Paroxysmal atrial fibrillation Renal cyst, right Surgical History Surgical History H/O cardiac radiofrequency ablation for afib History of repair of hiatal hernia Family History Family History (Reviewed 1
[2022-10-24 15:30] VITALS: BP 131/70; PULSE 69; RESP 18; O2SAT 98
[2022-10-24] MEDS: ACETAMINOPHEN 500 MG TABLET 1000 MG PO (15:40)
[2022-10-24 15:53] LABS: Basophils Absolute Auto 0.04 K/mm3 (0.00-0.10); Basophils Percent Auto 0.5 % (0.0-1.0); Eosinophils Absolute Auto 0.09 K/mm3 (0.02-0.50); Eosinophils Percent Auto 1.2 % (1.0-6.0); Hematocrit 43.4 % (35.0-42.0); Hemoglobin 14.8 g/dL (11.7-13.8); Immature Granulocyte Absolute 0.02 K/mm3 (0.00-0.00); Immature Granulocyte Percent A 0.3 % (0.0-0.0); Lymphocytes Absolute Auto 3.29 K/mm3 (1.10-4.50); Lymphocytes Percent Auto 44.1 % (18.0-42.0); Mean Corpuscular HGB Conc 34.1 g/dL (32.0-36.0); Mean Corpuscular Hemoglobin 33.3 pg (27.0-31.0); Mean Corpuscular Volume 97.5 fL (78.0-102.0); Mean Platelet Volume 8.8 fl (9.2-11.8); Monocytes Percent Auto 6.7 % (2.0-11.0); Neutrophils Absolute Auto 3.5 K/mm3 (1.7-7.2); Neutrophils Percent Auto 47.2 % (50.0-70.0); Platelet Count Result 235 K/mm3 (150-420); Red Blood Count 4.45 M/mm3 (4.20-5.40); Red Cell Distribution Width 12.7 % (11.6-14.4); White Blood Count 7.5 K/mm3 (4.8-10.8)
[2022-10-24 15:54] LABS: Add Urine Microscopic? YES; Bilirubin Urine Negative (Negative); Blood Urine Negative (Negative); Color Urine Light Yellow (Yellow); Glucose Urine UA Negative (Negative); Ketones Urine Negative (Negative); Leukocyte Esterase Ur Trace LEU/UL (Negative); Nitrate Urine Positive (Negative); Protein Urine Negative (Negative)
[2022-10-24 16:01] LABS: Appearance Urine Cloudy (Clear); Bacteria Urine 4+ /hpf; Squamous Epithelial Cell Urine Few /hpf (Few)
[2022-10-24 16:07] LABS: Alanine Aminotransferase 20 U/L (14-59); Alkaline Phosphatase 80 U/L (46-116); Anion Gap 5 mmol/L (8-16); Aspartate Amino Transferase 17 U/L (15-37); Bilirubin,Total 0.9 mg/dL (0.00-1.00); Blood Urea Nitrogen 8 mg/dL (7-18); Calcium 8.8 mg/dL (8.5-10.1); Carbon Dioxide 33 mmol/L (21-32); Chloride 98 mmol/L (98-108); Estimated CRCL calculation 56 ml/min; Estimated Glomerular Filt Rate > 60; Glucose 97 mg/dL (70-99); Osmolality Calculated 280 mOsm/kg (285-295); Potassium 3.5 mmol/L (3.5-5.1); Sodium 136 mmol/L (136-145); Total Protein 7.1 g/dL (6.4-8.2)
[2022-10-24 17:11] VITALS: BP 145/77; PULSE 80; RESP 18; TEMP 36.6; O2SAT 97
[2022-10-24] MEDS: SULFAMETHOXAZOLE/TRIMETHOPRIM 800/160 MG DS TABLET 1 TAB PO (17:31)
--- NOTE | 2022-10-27 13:23 | PC.NURSE ---
PRELIMINARY URINE CULTURE REPORT: GREATER THAN 100,000 CFU/ML OF E COLI. PER DR GASCA, TO AWAIT SENSITIVITIES FOR FURTHER INSTRUCTIONS.
== END 2022-10-24 17:59 | disposition home or self-care (01) ==
PROVIDERS: Emergency Provider Emergency Medicine; PCP Internal Medicine
DX: M54.50 Low back pain, unspecified (principal); G89.29 Other chronic pain; N39.0 Urinary tract infection, site not specified; K57.90 Diverticulosis of intestine, part unspecified, without perforation or abscess without bleeding; I48.0 Paroxysmal atrial fibrillation; J44.9 Chronic obstructive pulmonary disease, unspecified; F17.200 Nicotine dependence, unspecified, uncomplicated; Z79.1 Long term (current) use of non-steroidal anti-inflammatories (NSAID)
CPT/HCPCS: 36415; 74177; 80053; 81001; 85025; 87077; 87086; 87088; 87186; 99284; A9270; Q9967

== ENCOUNTER 2022-12-08 14:03 | Outpatient (CLI) | payer MEDICARE, SELFPAY ==
--- NOTE | ~2022-12-08 | XR_ITS ---
Right foot Technique: AP, oblique, and lateral views were obtained. Clinical History: Pain Findings: No acute fracture or dislocation is seen. Osseous alignment is anatomic. Joint spaces are p reserved without erosive or degenerative change. Soft tissues are unremarkable. Impression: Unremarkable right foot radiographs. Reviewed, dictated and finalized at location . TRIMMER Impression: Unremarkable right foot radiographs.
== END 2022-12-08 14:04 | disposition home or self-care (01) ==
LOC: CHSLAB 14:05 → CHSIMG 14:06
PROVIDERS: PCP Internal Medicine; Visit Provider Internal Medicine
DX: M79.671 Pain in right foot (principal)
CPT/HCPCS: 73630

== ENCOUNTER 2022-12-27 11:36 | Outpatient (CLI) | payer MEDICARE, SELFPAY ==
--- NOTE | ~2022-12-27 | XR_ITS ---
Right foot Technique: AP, oblique, and lateral views were obtained. Clinical History: Pain COMPARISON: 12/08/2022 Findings: No acute fracture or dislocation is seen. Osseous alignment is anatomic. Joint spaces are p reserved without erosive or degenerative change. Soft tissues are unremarkable. Impression: Unremarkable right foot radiographs. Reviewed, dictated and finalized at location . 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
== END 2022-12-27 11:37 | disposition home or self-care (01) ==
LOC: CHSIMG 11:39
PROVIDERS: PCP Internal Medicine; Visit Provider Anesthesiology Pain Medicine
DX: M79.671 Pain in right foot (principal)
CPT/HCPCS: 73630

== ENCOUNTER 2023-04-06 10:21 | Outpatient (RCR) | payer MEDICARE, SELFPAY ==
--- NOTE | 2023-04-06 11:01 | PTOPEVAL1 ---
Assessment and note entered by Mark Gauthier Evaluation Information Assessment Status Evaluation Diagnosis back pain with radiculopathy Onset 03/08/23 Subjective Information Pt. reports having years of on/off back pain. She reports that pain remains localized to the right side of the low back. She reports that she does not get pain in her legs. Pt. reports she works at [employer] and has trouble bending forward to do activities. She reports that she has difficulty with sitting for long periods of time. She states that she has no pain at night. She does utilize a back brace which helps to ease her pain. She reports that her biggest concern is her inability to stand for long periods of time that make completing work and household tasks difficult. Her goal is to decrease pain with standing for long periods. Reported Pain Level Pain Score 5: Self Report Assessment PT Clinical Summary Pt. is a 77 year old female who enters the clinic with low back pain. She presents with impaired abdominal and proximal l.e. strength, impaired gait, impaired trunk mobility, impaired postural awareness and pain on this date. Continued skilled PT is indicated in order to improve these areas to allow the pt. to be able to complete all IADL's with improved comfort and mobility. Plan of Care Interventions Electrical Stimulation,Hot Pack/Cold Pack,Manual Therapy,Neuro Re-education,Patient/Caregiver Educati,Therapeutic Activities,Therapeutic Exercise PT Services Indicated Yes Treatment Frequency and 2x/week x 8 visits Duration These treatments will address the objective and functional deficits as defined above. The patient will be advanced safely and appropriately in order for the patient to progress towards his/her prior level of function. Additional exercises will be introduced and as well as a comprehensive home exercise program upon discharge, if needed, ?to ensure carryover of functional gains achieved in the clinic. This treatment plan has been reviewed and agreement upon by the patient.
--- NOTE | 2023-04-06 11:07 | OPREHPOC ---
Outpatient Therapy Plan of Care This is a Multidisciplinary Plan of Care that may contain components documented by all disciplines (PT, OT, and ST.) PT Problem 1 PT Problem #1 Knowledge Deficit PT Goal 1 Goal Pt. will be independent with a HEP addressing trunk mobility and core strength. Target Visit 2 PT Problem 2 PT Problem #2 Impaired Flexibility PT Goal 1 Goal Pt. will increase bilateral HS flexiblity to 15 degrees from full knee extension Target Visit 6 PT Problem 3 PT Problem #3 Impaired Strength PT Goal 1 Goal Pt. will increase proximal l.e. strength and abdominal strength by 1/2 mm. grade Target Visit 6 PT Goal 2 Goal Pt. will demonstrate improved postural awareness with standing for periods of 20 minutes or greater , with lesser degree of noted trunk flexion. Target Visit 12 PT Problem 4 PT Problem #4 Pain PT Goal 1 Goal Pt. will reports pain levels at 6/10 at worst with prolonged standing. Target Visit 12
== END 2023-05-03 20:00 | disposition home or self-care (01) ==
LOC: CHSPT 10:21
PROVIDERS: PCP Internal Medicine; Visit Provider Internal Medicine
DX: M54.10 Radiculopathy, site unspecified (principal); M54.9 Dorsalgia, unspecified; M47.9 Spondylosis, unspecified
CPT/HCPCS: 97014; 97110; 97140; 97161; G0283

== ENCOUNTER 2023-04-10 14:25 | Emergency (ER) | payer MEDICARE, SELFPAY ==
--- NOTE | ~2023-04-10 | XR_ITS ---
Left foot Technique: AP, oblique, and lateral views were obtained. Clinical History: Swelling Findings: No acute fracture or dislocation is seen. Osseous alignment is anatomic. Joint spaces are p reserved without erosive or degenerative change. There is enthesopathic change at the Achilles tendon insertion. Impression: No fracture or dislocation. Reviewed, dictated and finalized at location . Impression: No fracture or dislocation.
--- NOTE | ~2023-04-10 | CT_ITS ---
Noncontrast CT scan of the left foot CLINICAL HISTORY: Pain TECHNIQUE: Axial noncontrast imaging of the left foot was performed. Sagittal and coronal reformatted images were constructed. Dose reduction technique was used on this scan by utilizing automated expos ure control and iterative reconstruction technique. The dose-length product (DLP) was 539.13 mGy-cm. Findings: No acute fracture or dislocation seen. There is apparent pes cavus deformity. There are min imal scattered degenerative changes in the foot. There is enthesopathic change at the Achilles tendon insertion. There is mild dorsal subcutaneous soft tissue swelling at the level of the navicular and cuneiforms.. No other soft tissue abnormality evident. IMPRESSION: No fracture or dislocation. Subcutaneous soft tissue swelling dorsally at the level of the navicular and cuneiforms, nonspecific. Possible pes cavus. Reviewed, dictated and finalized at [facility]. IMPRESSION: No fracture or dislocation. Subcutaneous soft tissue swelling dorsally at the level of the navicular and cu neiforms, nonspecific. Possible pes cavus.
[2023-04-10 14:42] VITALS: BP 180/100; PULSE 77; RESP 18; TEMP 36.8; O2SAT 95
--- NOTE | 2023-04-10 14:56 | ED.EXTPRO ---
HPI - Extremity Problem General Chief complaint: Extremity Problem,Nontraumatic Stated complaint: L foot pain Time Seen by Provider: 04/10/23 14:44 Source: patient Mode of arrival: ambulatory Limitations: no limitations History of Present Illness HPI Narrative: 77-year-old white female awoke this morning started having left foot pain was mild. She took some Tylenol then she went to work at [employer] with standing and turn and she felt a twinge of pain in her left foot which gradually got worse to the point where she needed to leave work and could not walk and had to get a scooter to get to her car. She went home and iced it and took a nap woke up and has continued pain. Did not have any trauma and denies any other pain pain is worse when she walks on it. Otherwise she is eating drinking stooling voiding fine no cough fever sore throat runny nose rash or itching bleeding or bruising or any other complaints she has no other swelling. Related Data Home Medications Medication Instructions Recorded Confirmed losartan 100 1 tablet PO DAILY 05/20/20 10/24/22 mg-hydrochlorothiazide 25 mg tablet pravastatin 20 mg tablet 20 mg PO DAILY 05/20/20 10/24/22 propafenone 150 mg tablet 150 mg PO BID 05/20/20 10/24/22 alprazolam 0.5 mg tablet 0.5 mg PO BID PRN Anxiety 09/06/21 10/24/22 meloxicam 15 mg tablet 15 mg PO DAILY PRN Anxiety 09/06/21 10/24/22 pantoprazole 40 mg tablet,delayed 40 mg PO DAILY 09/06/21 10/24/22 release potassium chloride 10 mEq 10 meq PO DAILY 09/06/21 10/24/22 tablet,extended release Allergies Allergy/AdvReac Type Severity Reaction Status Date / Time amoxicillin [From Augmentin] AdvReac Fatigued Verified 10/24/22 14:26 clavulanic acid AdvReac Fatigued Verified 10/24/22 14:26 [From Augmentin] montelukast AdvReac Abdominal Verified 10/24/22 14:26 Pain Review of Systems Review of Systems: All systems reviewed & are unremarkable except as noted in HPI and below PMFSH Past Medical History Medical History Anxiety Chronic vertigo COPD (chronic obstructive pulmonary disease) Diverticulosis GERD (gastroesophageal reflux disease) Hypercholesteremia Hypertension Low back pain Normal nuclear stress test 03/2017 Paroxysmal atrial fibrillation Renal cyst, right Surgical History Surgical History H/O cardiac radiofrequency ablation for afib History of repair of hiatal hernia Family History Family History Other Family history non-contributory Social History Social History Smoking status: Current every day smoker Alcohol intake: never Substance use: never Living arrangements: with family Gender identity (if verbalized by the patient): Female Exam Narrative: Patient is a white female? and appears in no apparent distress. ? Head is normocephalic atraumatic. ? Eyes:? Pupils are equal round react light extraocular movements are intact. ? Extremities:? Full range of motion . Left foot: Dorsal swelling and tenderness with a high arched foot. There is no other tenderness of her ankle or the rest of her foot. DP and PT pulses are +2 equal bilateral. She has normal above the ankle? No cyanosis clubbing or edema. antalgic gait ?Neuro:? alert and oriented x4.? Motor and sensory grossly intact.? Speech is normal.? Affect normal.? Cranial nerves 2-12 are normal . ? Skin:? Warm and dry without lesions. Const: General: healthy appearing Nutritional Appearance: well nourished Orientation/consciousness: patient oriented x3 Limitations: no limitations Course Vital Signs Vital signs: Vital Signs Temperature 36.8 C 04/10/23 14:42 Pulse Rate 77 04/10/23 14:42 Respiratory Rate 18 04/10/23 14:42 Blood Pressure 180/100 H 04/10/23 14:42 Puls
--- NOTE | 2023-04-10 18:19 | PC.NURSE ---
1600 pt resting per cot. up to bathroom via wheelchair. assisted back to room 5. warm blanket applied per this repairer typewriter. pt declined pain medication at this time 1700 pt up to bathroom with assist, back to room 5. states has not ate all day. meal offered, pt declined i can just wait . 1730 pt resting per cot, wanting to leave. explained awaiting discharge instructions. 1810 pt walking up hallway to leave, explained printing discharge papers. pt upset has been here for 4 hours.
== END 2023-04-10 18:18 | disposition home or self-care (01) ==
PROVIDERS: Emergency Provider Emergency Medicine; PCP Internal Medicine
DX: M79.672 Pain in left foot (principal); Q66.72 Congenital pes cavus, left foot; J44.9 Chronic obstructive pulmonary disease, unspecified; I10 Essential (primary) hypertension; I48.0 Paroxysmal atrial fibrillation; F17.200 Nicotine dependence, unspecified, uncomplicated
CPT/HCPCS: 73630; 73700; 99283

== ENCOUNTER 2023-04-20 17:30 | Outpatient (CLI) | payer MEDICARE, SELFPAY ==
--- NOTE | ~2023-04-20 | XR_ITS ---
XR hip BI wo pelvis 04/20/2023 19:22 Indication: Bilateral hip pain Procedure: 2 views each hip Comparison: No prior studies for comparison. Findings: There is moderate bilateral osteoarthritis of the hips. Osteopenia. There is osteitis pubis . No fracture or traumatic malalignment. No foreign bodies. Impression: 1: Moderate bilateral osteoarthritis of the hips. Reviewed, dictated and finalized at location L. Impression: 1: Moderate bilateral osteoarthritis of the hips.
== END 2023-04-20 17:31 | disposition home or self-care (01) ==
LOC: CHSIMG 17:32
PROVIDERS: PCP Internal Medicine; Visit Provider Internal Medicine
DX: M54.50 Low back pain, unspecified (principal); M25.559 Pain in unspecified hip; M19.90 Unspecified osteoarthritis, unspecified site; M16.0 Bilateral primary osteoarthritis of hip
CPT/HCPCS: 73521

== ENCOUNTER 2023-04-23 08:57 | Outpatient (CLI) | payer MEDICARE, SELFPAY ==
--- NOTE | ~2023-04-23 | MR_ITS ---
MRI of the lumbar spine Clinical History: Chronic back pain Technique: Axial T2-weighted images, and sagittal T1-weighted, T2-weighted, and T2 fat-sat images wer e acquired. COMPARISON: 01/14/2021 Findings: There is no fracture or subluxation of the lumbar spine. Osseous alignment is unchanged fro m prior exam. No suspicious bone marrow signal abnormality seen. At L1-L2, there is no significant disc bulge or herniation. There is mild to moderate facet arthropat hy. No central canal stenosis or neural foraminal narrowing. At L2-L3, there is mild diffuse disc bulge, with moderate facet arthropathy. No lynda central canal s tenosis. There is mild left neural foraminal narrowing. Right neural foramen preserved. At L3-L4, there is disc bulge and facet arthropathy. There is left lateral recess stenosis with moder ate left neural foraminal narrowing. There is minimal right neural foraminal narrowing. At L4-L5, there is disc bulge and facet arthropathy, with bilateral lateral recess stenosis. There is severe right neural foraminal narrowing and moderate left neural foraminal narrowing. At L5-S1, there is advanced facet arthropathy without disc bulge or herniation. No central canal sten osis or neural foraminal narrowing. Paravertebral soft tissues are unremarkable. Impression: Moderate degenerative spondylosis at L3-L4 and L4-L5, as detailed above. Mild degenerative changes in the remainder of the lumbar spine, as detailed above. Reviewed, dictated and finalized at [facility]. Impression: Moderate degenerative spondylosis at L3-L4 and L4-L5, as detailed above. Mild degenerative changes in the remainder of the lumbar spine, as detailed abo ve.
== END 2023-04-23 08:58 | disposition home or self-care (01) ==
LOC: CHSIMG 08:59
PROVIDERS: PCP Internal Medicine; Visit Provider Internal Medicine
DX: M54.50 Low back pain, unspecified (principal); M81.0 Age-related osteoporosis without current pathological fracture; M19.90 Unspecified osteoarthritis, unspecified site; M43.06 Spondylolysis, lumbar region
CPT/HCPCS: 72148

== ENCOUNTER 2023-04-27 09:53 | Outpatient (CLI) | payer MEDICARE, SELFPAY ==
--- NOTE | ~2023-04-27 | DEXA_ITS ---
Bone Density Report Name: SHUN JARRETT Age: 77 Sex: Female Ethnicity: White Date of : 1945 Indication: postmenopausal; screening for osteoporosis; height loss; hysterectomy; rheumatoid arthritis; Referring Provider: Stanford Padilla Study: Bone densitometry was performed. Exam Date: April 27, 2023 Accession number: [id number] Bone Density: Region BMD T-score Z-score Classification AP Spine(L1, L2, L3) 0.834 -1.7 0.9 Osteopenia Femoral Neck (Left) 0.610 -2.2 0.1 Osteopenia Total Hip (Left) 0.695 -2.0 0.0 Osteopenia Femoral Neck (Right) 0.550 -2.7 -0.4 Osteoporosis Total Hip (Right) 0.684 -2.1 -0.1 Osteopenia Femoral Neck Mean 0.580 -2.4 -0.1 Osteopenia Total Hip Mean 0.689 -2.1 0.0 Osteopenia World Health Organization criteria for BMD impression classify patients as: Normal (T-score at or above -1.0), Osteopenia (T-score between -1.0 and -2.5), or Osteoporosis (T-score at or below -2.5). 10-year Fracture Risk: FRAX not reported because: Some T-score for Spine Total or Hip Total or Femoral Neck at or below -2.5 Clinical Information Provided by Patient: Smokes Has rheumatoid arthritis Has the following medical conditions: Hysterectomy Patient maximum height was 65 Menopause Age: 43 No regular weight bearing exercise Drinks caffeinated beverages Onset of menses at age 10 Number of children 2 Impression: The patient has osteoporosis, based on the Right Femoral Neck T-score. The patient has risk factors, including: smoking. Discussion: INCREASED RISK OF FRACTURE. BONE DENSITY IS UNDESIRABLY LOW AT ONE OR MORE SKELETAL SITES, CONSISTENT WITH POSTMENOPAUSAL OSTEOPOROSIS. This patient's lowest T-score meets the World Health Organization's (WHO) criteria for osteoporosis at one or more sites (T-score -2.5 or below). In untreated patients, the risk of osteoporotic fracture increases approximately two-fold for each 1.0 SD decrease in T-score. Low bone density is not the only risk factor for fracture; also consider factors such as patient's age, frailty or poor health, risk of falling, risk of injury, previous osteoporotic fracture, family history of osteoporosis, cigarette smoking, low body weight, etc. Not everyone with low bone mineral density has osteoporosis; osteomalacia and other metabolic bone disorders should also be considered. Patients who have osteoporosis should be evaluated for specific diseases and conditions (secondary causes) that may cause or contribute to bone loss. The [place] [employer]ocrinologists (AACE) and National Osteoporosis Foundation (NOF) recommend pharmacologic intervention for all postmenopausal women whose T-score is in this range. The patient should follow a healthful lifestyle (good nutrition with adequate calcium and vitamin D, an
== END 2023-04-27 09:54 | disposition home or self-care (01) ==
LOC: CHSIMG 09:54
PROVIDERS: PCP Internal Medicine; Visit Provider Internal Medicine
DX: M54.50 Low back pain, unspecified (principal); M81.0 Age-related osteoporosis without current pathological fracture; M85.89 Other specified disorders of bone density and structure, multiple sites
CPT/HCPCS: 77080

== ENCOUNTER 2023-05-09 08:29 | Outpatient (CLI) | payer MEDICARE, SELFPAY ==
[2023-05-09] MEDS: DENOSUMAB 60 MG/ML SYRINGE SUB-Q (08:47)
[2023-05-09 08:48] VITALS: BP 163/89; PULSE 80; RESP 14; TEMP 36.4; O2SAT 98
[2023-05-09 08:49] VITALS: BMI 25.0
--- NOTE | 2023-05-09 08:49 | PC.NURSE ---
Patient here for Prolia injection. Education given. All concerns answered. Prolia injection administered. SEE MAR. Tolerated well. Safe exit of hospital per ambulatory/self.
== END 2023-05-09 08:30 | disposition home or self-care (01) ==
LOC: CHSTREATRM 08:32
PROVIDERS: PCP Internal Medicine; Visit Provider Internal Medicine
DX: M81.0 Age-related osteoporosis without current pathological fracture (principal)
CPT/HCPCS: 96372; J0897

== ENCOUNTER 2023-08-08 08:38 | Outpatient (CLI) | payer MEDICARE, SELFPAY ==
--- NOTE | 2023-08-08 08:51 | ECG_ITS ---
Measurements Intervals [place] Rate: 72 P: 74 [place]: 176 QRS: 71 QRSD: 94 T: 124 QT: 390 QTc: 429 Interpretive Statements SINUS RHYTHM LEFT VENTRICULAR HYPERTROPHY AND ST-T CHANGE [VOLTAGE CRITERIA PLUS ST/T ABNORMALITY] ABNORMAL ECG COMPARED TO ECG 05/20/2020 11:41:15 NO SIGNIFICANT CHANGE Electronically Signed On 08-08-2023 13:46:25 CDT by Mark Nelson M.D.
[2023-08-08 08:57] LABS: Basophils Absolute Auto 0.07 K/mm3 (0.00-0.10); Basophils Percent Auto 0.8 % (0.0-1.0); Eosinophils Absolute Auto 0.08 K/mm3 (0.02-0.50); Eosinophils Percent Auto 0.9 % (1.0-6.0); Hematocrit 39.8 % (35.0-42.0); Hemoglobin 13.6 g/dL (11.7-13.8); Immature Granulocyte Absolute 0.02 K/mm3 (0.00-0.00); Immature Granulocyte Percent A 0.2 % (0.0-0.0); Lymphocytes Absolute Auto 2.84 K/mm3 (1.10-4.50); Lymphocytes Percent Auto 33.4 % (18.0-42.0); Mean Corpuscular HGB Conc 34.2 g/dL (32.0-36.0); Mean Corpuscular Hemoglobin 34.3 pg (27.0-31.0); Mean Corpuscular Volume 100.3 fL (78.0-102.0); Mean Platelet Volume 8.6 fl (9.2-11.8); Monocytes Absolute Auto 0.62 K/mm3 (0.10-0.90); Monocytes Percent Auto 7.3 % (2.0-11.0); Neutrophils Absolute Auto 4.9 K/mm3 (1.7-7.2); Neutrophils Percent Auto 57.4 % (50.0-70.0); Platelet Count Result 287 K/mm3 (150-420); Red Blood Count 3.97 M/mm3 (4.20-5.40); Red Cell Distribution Width 12.9 % (11.6-14.4); White Blood Count 8.5 K/mm3 (4.8-10.8)
[2023-08-08 09:18] LABS: Anion Gap 7 mmol/L (8-16); Blood Urea Nitrogen 10 mg/dL (7-18); Calcium 9.3 mg/dL (8.5-10.1); Carbon Dioxide 31 mmol/L (21-32); Chloride 100 mmol/L (98-108); Estimated Glomerular Filt Rate > 60; Glucose 89 mg/dL (70-99); Osmolality Calculated 284 mOsm/kg (285-295); Sodium 138 mmol/L (136-145)
== END 2023-08-08 08:39 | disposition home or self-care (01) ==
LOC: CHSCARD 08:41
PROVIDERS: PCP Internal Medicine; Visit Provider Internal Medicine
DX: Z01.818 Encounter for other preprocedural examination (principal); R94.31 Abnormal electrocardiogram [ECG] [EKG]
CPT/HCPCS: 36415; 80048; 85025; 93005

== ENCOUNTER 2023-10-26 10:54 | Emergency (ER) | payer MEDICARE, SELFPAY ==
[2023-10-26] VITALS (16 sets, daily range): BP systolic 134–170; BP diastolic 87–102; PULSE 67–75; RESP 12–22; TEMP 36.3; O2SAT 94–97
--- NOTE | ~2023-10-26 | XR_ITS ---
EXAMINATION: XR chest 1V portable INDICATION: Chest pain TECHNIQUE: Portable AP chest at 1135 hours COMPARISON: 09/06/2021 FINDINGS: There is mild atelectasis of the lung bases. No pleural effusion or pneumothorax. The cardi omediastinal silhouette is normal. There is moderate osteoarthritis of the right shoulder. IMPRESSION: 1. Mild atelectasis of the lung bases. Reviewed, dictated and finalized at location B. ER FURNACE
--- NOTE | ~2023-10-26 | CT_ITS ---
EXAMINATION: CTA chest PE protocol DATE: 10/26/2023 13:01 INDICATION: Chest tightness, shortness of breath, recent COVID 19 TECHNIQUE: Computed tomography angiography (CTA) of the chest was performed with 100 mL Omnipaque-350 intravenous contrast timed to evaluate the pulmonary arteries. Coronal maximum intensity projection 3D-reconstructions were created by the technologist. The dose-length product (DLP) was 181.41 mGy-cm. Automated exposure control and iterative reconstruction technique were employed. COMPARISON: 03/07/2019 FINDINGS: The pulmonary arteries are well-opacified. No pulmonary embolism is identified. The lungs a re free of acute opacities. No pleural effusion or pneumothorax. No pathologically enlarged thoracic lymph nodes are identified. The heart size is normal. There are surgical clips near the gastroesophag eal junction. A partially imaged cyst of the right kidney measures 7.1 cm. There is moderate thoracic spondylosis. IMPRESSION: 1. No pulmonary embolism or acute cardiopulmonary abnormality. Reviewed, dictated and finalized at location B. 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
--- NOTE | 2023-10-26 11:01 | ED.CHESTPAIN ---
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 She presents with a 3 day history of -- chest discomfort unrelated to exercise. The chest pain lasts from 15-20 minutes and resolved spontaneously. -- Cough which is nonproductive -- Anxious about the upcoming . no fever or chills. MD complaint: chest discomfort Onset (ago): day(s) ( 3 days) Timing of current episode: episodic Prior episodes: No Onset: during rest Pain location: substernal Pain radiation: none Severity: moderate Quality: aching Relieving factors: nothing Exacerbating factors: nothing Context: recent illness ( recently diagnosed with COVID.) Risk Factors Coronary artery disease risk factors: smoking history, hyperlipidemia and hypertension Thoracic aortic dissection risk factors: longstanding hypertension Related Data On Oral Contraceptives: No Home Medications Medication Instructions Recorded Confirmed losartan 100 1 tablet PO DAILY 05/20/20 10/26/23 mg-hydrochlorothiazide 25 mg tablet pravastatin 20 mg tablet 20 mg PO DAILY 05/20/20 10/26/23 propafenone 150 mg tablet 150 mg PO BID 05/20/20 10/26/23 alprazolam 0.5 mg tablet 0.5 mg PO BID PRN Anxiety 09/06/21 10/26/23 meloxicam 15 mg tablet 15 mg PO DAILY PRN Anxiety 09/06/21 10/26/23 potassium chloride 10 mEq 10 meq PO DAILY 09/06/21 10/26/23 tablet,extended release apixaban 5 mg tablet (Eliquis) 5 mg PO BID 05/09/23 10/26/23 calcium carbonate 600 mg-vitamin 1 tablet PO DAILY 05/09/23 10/26/23 D3 20 mcg (800 unit) tablet (Caltrate with Vitamin D3) Allergies Allergy/AdvReac Type Severity Reaction Status Date / Time amoxicillin [From Augmentin] AdvReac Fatigued Verified 10/26/23 11:04 clavulanic acid AdvReac Fatigued Verified 10/26/23 11:04 [From Augmentin] montelukast AdvReac Abdominal Verified 10/26/23 11:04 Pain Review of Systems Review of Systems: All systems reviewed & are unremarkable except as noted in HPI and below Constitutional: Constitutional: Reports as per HPI and Reports no additional constitutional complaints Eyes: Eyes: Reports as per HPI and Reports no additional eye complaints ENT: Reports system reviewed and no additional complaints, except as documented and Reports as per HPI Cardiovascular: Cardiovascular: Reports as per HPI, Reports no additional cardiovascular complaints and Reports chest pain Respiratory: Respiratory: Reports as per HPI and Reports no additional respiratory complaints Gastrointestinal: Gastrointestinal: Reports as per HPI and Reports no additional gastrointestinal complaints Genitourinary: Genitourinary: Reports no additional female genitourinary complaints Musculoskeletal: Musculoskeletal: Reports no additional musculoskeletal complaints and Reports as per HPI Integumentary/Breasts: Skin/Breast: Reports system reviewed and no additional complaints, except as docu and Reports as per HPI Neurologic: Reports system reviewed and no additional complaints, except as documented and Reports as per HPI Psychiatric: Psychiatric: Reports no additional psychiatric complaints, Reports as per HPI and Reports anxiety Endocrine: Endocrine: Reports no additional endocrine complaints and Reports as per HPI Hematologic/Lymphatic: Hematologic/Lymphatic: Reports no additional hematologic/lymphatic complaints and Reports as per HPI Allergic/Immunologic: Allergic/Immunologic: Reports no additional allergic/immunologic complaints and Reports as per HPI PMFSH Past Medical History Medical History (Reviewed 10/08
--- NOTE | 2023-10-26 11:13 | PC.NURSE ---
PT INTO ER WITH REPORT OF TESTING POSITIVE FOR COVID ON 10/17/23, PT DID TAKE PAXLOVID, REPORTS ALL SX IMPROVED. 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 PT DENIES ANY COUGH, CONGESTION, SORE THROAT, N-V-D, FEVER, LIGHTHEADEDNESS, DIZZINESS, RADIATION OF PAIN. PT IS ANXIOUS, REPORTS SHE NEEDS TO KNOW IF SHE CAN GO TO HER FAMILY [place]. NAD NOTED. PT DENIES ANY PAIN, SOB AT THIS TIME.
--- NOTE | 2023-10-26 11:22 | ECG_ITS ---
Measurements Intervals [place] Rate: 71 P: 78 [place]: 175 QRS: 70 QRSD: 97 T: 99 QT: 389 QTc: 424 Interpretive Statements SINUS RHYTHM NONSPECIFIC T-WAVE ABNORMALITY BORDERLINE ECG COMPARED TO ECG 08/08/2023 09:00:11 NO SIGNIFICANT CHANGES Electronically Signed On 10-26-2023 15:26:58 VACCINE MANAGER by Colt Gilman M.D.
[2023-10-26 11:43] LABS: Basophils Absolute Auto 0.06 K/mm3 (0.00-0.10); Basophils Percent Auto 0.7 % (0.0-1.0); Eosinophils Absolute Auto 0.07 K/mm3 (0.02-0.50); Eosinophils Percent Auto 0.8 % (1.0-6.0); Hematocrit 42.8 % (35.0-42.0); Hemoglobin 14.4 g/dL (11.7-13.8); Immature Granulocyte Absolute 0.04 K/mm3 (0.00-0.00); Immature Granulocyte Percent A 0.5 % (0.0-0.0); Lymphocytes Percent Auto 31.9 % (18.0-42.0); Mean Corpuscular HGB Conc 33.6 g/dL (32.0-36.0); Mean Corpuscular Volume 98.2 fL (78.0-102.0); Mean Platelet Volume 8.5 fl (9.2-11.8); Monocytes Percent Auto 7.1 % (2.0-11.0); Platelet Count Result 267 K/mm3 (150-420); Red Blood Count 4.36 M/mm3 (4.20-5.40); Red Cell Distribution Width 12.7 % (11.6-14.4); White Blood Count 8.5 K/mm3 (4.8-10.8)
[2023-10-26 11:59] LABS: Partial Thromboplastin Time 27.6 SEC (23.90-30.70); Prothrombin Time 10.7 Seconds (9.50-12.10)
[2023-10-26 12:00] LABS: D Dimer 0.59 mg/L (0.19-0.50); Lactic Acid Reflex 1.1 mmol/L (0.4-2.0)
[2023-10-26 12:09] LABS: Alanine Aminotransferase 30 U/L (14-59); Albumin Level 3.8 g/dL (3.4-5.0); Alkaline Phosphatase 59 U/L (46-116); Anion Gap 5 mmol/L (8-16); Aspartate Amino Transferase 19 U/L (15-37); Bilirubin,Total 0.6 mg/dL (0.00-1.00); Blood Urea Nitrogen 9 mg/dL (7-18); Calcium 9.2 mg/dL (8.5-10.1); Carbon Dioxide 33 mmol/L (21-32); Chloride 95 mmol/L (98-108); Estimated Glomerular Filt Rate > 60; Glucose 102 mg/dL (70-99); NT Pro B Type Natriuretic Pept 405 pg/mL (0-450); Osmolality Calculated 274 mOsm/kg (285-295); Potassium 3.4 mmol/L (3.5-5.1); Sodium 133 mmol/L (136-145); Total Protein 6.7 g/dL (6.4-8.2); Troponin I 13.5 ng/L (0.00-60.4)
[2023-10-26 12:17] LABS: SARS-CoV-2 RNA PCR Negative (Negative)
[2023-10-26 12:23] LABS: Influenza A QL RT-PCR Negative (Negative); Influenza B QL RT-PCR Negative (Negative); RSV RNA, RT-PCR Negative (Negative)
--- NOTE | 2023-10-26 12:41 | PC.NURSE ---
PT TO CT AT THIS TIME. WARM BLANKET HAD BEEN PROVIDED. NAD NOTED. PT DENIES ANY NEEDS OR COMPLAINTS. WILL CONTINUE TO MONITOR.
[2023-10-26] MEDS: LACTATED RINGERS 500 ML 999 ML IV CONT (13:03)
== END 2023-10-26 13:25 | disposition home or self-care (01) ==
PROVIDERS: Emergency Provider Internal Medicine Critical Care Medicine; PCP Internal Medicine
DX: R07.9 Chest pain, unspecified (principal); E78.5 Hyperlipidemia, unspecified; I10 Essential (primary) hypertension; J44.9 Chronic obstructive pulmonary disease, unspecified; I48.0 Paroxysmal atrial fibrillation; F17.200 Nicotine dependence, unspecified, uncomplicated; Z79.01 Long term (current) use of anticoagulants; Z79.899 Other long term (current) drug therapy; Z20.822 Contact with and (suspected) exposure to COVID-19; Z98.890 Other specified postprocedural states
CPT/HCPCS: 36415; 71045; 71275; 80053; 83605; 83880; 84484; 85025; 85380; 85610; 85730; 87637; 93005; 99284; J7120; Q9967

== ENCOUNTER 2023-11-22 10:04 | Outpatient (CLI) | payer MEDICARE, SELFPAY ==
[2023-11-22 10:22] VITALS: BMI 23.3
[2023-11-22 10:23] VITALS: BP 169/92; PULSE 75; RESP 14; TEMP 29.6; O2SAT 96
[2023-11-22] MEDS: DENOSUMAB 60 MG/ML SYRINGE SUB-Q (10:26)
--- NOTE | 2023-11-22 10:30 | PC.NURSE ---
Patient here for q 6 month Prolia injection. Education given. No concerns voiced. Prolia injection administered. SEE MAR. Tolerated well. Safe exit of hospital per self/ambulatory.
== END 2023-11-22 10:05 | disposition home or self-care (01) ==
PROVIDERS: PCP Internal Medicine; Visit Provider Internal Medicine
DX: M81.0 Age-related osteoporosis without current pathological fracture (principal)
CPT/HCPCS: 96372; J0897

== ENCOUNTER 2024-05-28 07:54 | Outpatient (RCR) | payer MEDICARE, SELFPAY ==
--- NOTE | 2024-05-28 08:57 | OPREHPOC ---
Outpatient Therapy Plan of Care This is a Multidisciplinary Plan of Care that may contain components documented by all disciplines (PT, OT, and ST.) PT Problem 1 PT Problem #1 Knowledge Deficit PT Goal 1 Goal The patient will be independent in a home exercise program. Target Visit 4 PT Problem 2 PT Problem #2 Pain PT Goal 1 Goal The patient will report no greater than 5/10 low back pain with performance of ADLs. Target Visit 10 PT Problem 3 PT Problem #3 Impaired Functional Mobil PT Goal 1 Goal 1. The patient will demonstrate 50% or less self perceived disability per the Back Index. Target Visit 10 PT Problem 4 PT Problem #4 Impaired Strength PT Goal 1 Goal The patient will demonstrate 4/5 right knee and hip strength in order to navigate stairs and curbs . Target Visit 10
--- NOTE | 2024-05-28 08:58 | PTOPEVAL1 ---
Assessment and note entered by Aracely Maddox, PT Evaluation Information Assessment Status Evaluation ICD-10 Condition Codes (PT) Pain in low back M54.50 Onset 05/22/24 Subjective Information Kathe Collier reports she has right lower back pain that has been present for several years. She had surgery in November 2023 to have arthritis removed. She reports she was doing better after the surgery for a few months but she started having pain in the right lower back again. She has pain in the front of her thigh as well and it occurs when she lifts her leg to go up a step. She has to help her leg into the car sometimes. She has been going to pain management and underwent x-rays last week. She was also referred to PT. She is using OTC tylenol for pain relief. She notes increased pain when she bends forward. 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 Reported Pain Level Pain Score 10: Self Report Assessment PT Clinical Summary Kathe Collier presents with right low back pain with referral of symptoms to the anterior right thigh. 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 She objectively demonstrates decreased and painful lumbar AROM, decreased core and right hip/knee strength, decreased right hamstring flexibility, tenderness at the right lumbar paraspinals, and decreased functional abilities. She has a positive right straight leg raise test indicating possible nerve root irritation. She will benefit from skilled PT to address these limitations. Plan of Care Interventions Electrical Stimulation,Hot Pack/Cold Pack,Manual Therapy,Neuro Re-education,Patient/Caregiver Educati,Therapeutic Activities,Therapeutic Exercise PT Services Indicated Yes Treatment Frequency and 2 times per week for 10 visits Duration These treatments will address the objective and functional deficits as defined above. The patient will be advanced safely and appropriately in order for the patient to progress towards his/her prior level of function. Additional exercises will be introduced and as well as a comprehensive home exercise program upon discharge, if needed, ?to ensure carryover of functional gains achieved in the clinic. This
== END 2024-08-26 23:59 | disposition home or self-care (01) ==
LOC: CHSPT 07:54
PROVIDERS: Visit Provider Nurse Practitioner Family
DX: M54.50 Low back pain, unspecified (principal)
CPT/HCPCS: 97014; 97110; 97112; 97140; 97161; G0283

== ENCOUNTER 2024-06-30 07:32 | Outpatient (CLI) | payer MEDICARE, SELFPAY ==
--- NOTE | ~2024-06-30 | MR_ITS ---
EXAMINATION: MR lumbar spine wo con DATE: 06/30/2024 08:13 INDICATION: Right-sided low back pain radiating to the right leg. TECHNIQUE: Magnetic resonance imaging (MRI) of the lumbar spine was performed without intravenous con trast. Sequences included sagittal T2-weighted FSE, sagittal T2-weighted FS FSE, sagittal T1-weighted FSE, and axial T2-weighted FSE. COMPARISON: Lumbar spine MRI 04/23/2023 FINDINGS: There is 10 degrees dextroscoliosis of lumbar spine. Bilateral normal. There is mildly decr eased disc height at L1-L2, moderately decreased disc at L2-L3, mildly decreased disc at L3-L4, and s everely decreased disc height at L4-L5. The distal spinal cord signal intensity is normal. The conus medullaris is at T12-L1. There is a 7.7 cm cyst in right kidney. The following disc levels are specif ically discussed: L1-L2: The disc is bulging and has an annular fissure. There is severe bilateral facet joint osteoart hritis. There is no neural foraminal stenosis. There is mild central canal stenosis. L2-L3: The disc is bulging. There is severe bilateral facet joint osteoarthritis. There is mild bilat eral neural foraminal stenosis. There is mild central canal stenosis. L3-L4: The disc is bulging. There is severe bilateral facet joint osteoarthritis. There is moderate b ilateral neural foraminal stenosis. There is mild central canal stenosis. L4-L5: The disc is bulging and has an annular fissure. There is severe bilateral facet joint osteoart hritis. There is severe right and moderate left neural foraminal stenosis. There is mild central matteo l stenosis. L5-S1: The disc is bulging. There is severe bilateral facet joint osteoarthritis. There is mild bilat eral neural foraminal stenosis. There is no central canal stenosis. IMPRESSION: 1. Severe lumbar spondylosis, stable from 04/13/2023. 2. Lumbar dextroscoliosis. Reviewed, dictated and finalized at location A.
== END 2024-06-30 07:33 | disposition home or self-care (01) ==
LOC: CHSIMG 07:33
PROVIDERS: PCP Nurse Practitioner Family; Visit Provider Nurse Practitioner Family
DX: M54.50 Low back pain, unspecified (principal); M43.06 Spondylolysis, lumbar region; M41.86 Other forms of scoliosis, lumbar region
CPT/HCPCS: 72148

== ENCOUNTER 2024-07-31 07:57 | Outpatient (CLI) | payer MEDICARE, SELFPAY ==
--- NOTE | ~2024-07-31 | US_ITS ---
EXAMINATION: US renal BI DATE: 07/31/2024 08:19 INDICATION: Right kidney cyst. TECHNIQUE: Multiple ultrasound grayscale images of the kidneys were obtained. COMPARISON: Chest CT 10/26/2023 FINDINGS: The right kidney measures 11.0 x 4.5 x 5.0 cm. The left kidney measures 9.5 x 4.2 x 5.5 cm. The kidne ys demonstrate normal parenchymal echogenicity. There is a 5.0 cm cyst in right kidney. There is no h ydronephrosis. The bladder is contracted. IMPRESSION: 1. 5.0 cm cyst in right kidney. Reviewed, dictated and finalized at location A.
== END 2024-07-31 07:58 | disposition home or self-care (01) ==
LOC: CHSIMG 08:00
PROVIDERS: PCP Nurse Practitioner Family; Visit Provider Nurse Practitioner Family
DX: N28.1 Cyst of kidney, acquired (principal)
CPT/HCPCS: 76775

== ENCOUNTER 2025-02-13 07:38 | Outpatient (CLI) | payer OTHER, SELFPAY ==
--- NOTE | ~2025-02-13 | CT_ITS ---
CT of the Abdomen: Indication: Abdominal pain, injury Technique: 2.5 mm axial scans were obtained through the abdomen following intravenous administration of 100 cc of Omnipaque 350. Dose reduction technique was used on this scan by utilizing automated ex posure control and iterative reconstruction technique. The dose-length product (DLP) was 272.48 mGy-c m. COMPARISON: 10/24/2022 Findings: Scans through the lung bases demonstrates stable right middle lobe scarring. The liver, spleen, pancreas, adrenals and left kidney are within normal limits. Cholecystectomy clips are present. Large right renal cyst present superiorly. There are atherosclerotic calcifications of the aorta. No lymphadenopathy. Visualized bowel loops are unremarkable. No ascites. Impression: No acute abnormality seen. Reviewed, dictated and finalized at location . Impression: No acute abnormality seen.
--- OUTSIDE RECORDS SUMMARY | 2025-02-13 07:43 | XMS_ITS | Clinical Summary ---
Author Organization [facility] A Address [address] [place] [address] Care Team Providers Care Machine I Trimmer Name Role Phone Stanford Padilla MD Primary Care Provider [phone] Allergies No known active allergies Medications ALPRAZolam (XANAX) 0.5 mg tablet Take 0.5 mg by mouth daily as needed 0 Active pravastatin (PRAVACHOL) 20 mg tablet pravastatin tablet 20 mg; take 1 tablet by mouth at bedtime; 0; -Dec-2015; Active 6 Active propafenone (RYTHMOL) 150 mg tabletIndication s:Paroxysmal Atrial Fibrillation Take 1 tablet (150 mg total) by mouth 2 (two) times a day 180 tablet 3 0 Active FIBER, DEXTRIN, ORAL Take by mouth Active losartan-hydroch lorothiazide (HYZAAR) 100-25 mg per tablet Take 1 tablet by mouth daily Active Eliquis 5 mg tablet [address] (PROTONIX) 40 mg EC tablet 2 Active dilTIAZem CD/XR/XT (CARDIZEM CD,DILACOR XR) 120 mg 24 hr capsule Take 1 capsule (120 mg total) by mouth daily 30 capsule 11 2 Active Active Problems Problem Noted Date Diagnosed Date 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 Diffuse 30% proximal RCA stenosis noted and diffuse 25% proximal and mid LAD stenoses Assessment & Plan (01/19/2021 10:33 AM CDT): Despite mild CAD the patient will continue with aggressive secondary risk factor modification. Assessment & Plan (07/21/2020 11:52 AM CDT): Patient will continue with aggressive secondary risk factor modification. She should have her LDL re-evaluated and a target of less than 70 mg/dL, closer to 50 would be suggested. Paroxysmal atrial fibrillation 07/21/2020 Assessment & Plan (01/19/2021 10:32 AM CDT): Patient has had no evidence for any persistent recurrence of her atrial fibrillation. She presently takes her propafenone twice a day will continue with this medical regimen. Assessment & Plan (07/21/2020 11:58 AM CDT): Patient asked if she could discontinue her propafenone. I mentioned she could put it on hold, and try without. If she has recurrence of symptoms she could always restart at that time. As an alternative we could give consideration to just rate control. I will tentatively review her care in about 6 months per Smoker 07/21/2020 Assessment & Plan (07/21/2020 11:58 AM CDT): Again and stressed the importance of smoking cessation. Patient does not appear to be motivated toward success. High risk medications (not anticoagulants) long- term use 07/21/2020 Overview (07/21/2020): Propafenone Refusal of anticoagulant medication by patient 0 07/21/2020 Assessment & Plan (01/19/2021 10:32 AM CDT): Patient continues to have strong opinions against the use of oral anticoagulation. Musculoskeletal chest pain 05/20/2020 Assessment & Plan (05/21/2020 7:17 PM CDT): With elevated troponin of 0.23 at outside facility. BNP 47.3 and a slightly elevated D-dimer 0.92 with reference high as 0.5. Cardiac angiography was performed on May 21 and there is no coronary disease found. Patient remained chest pain-free by the day of discharge recommended to follow-up with cardiology for further management of her atrial fibrillation with recent change in propafenone dosage given the mild bradycardia that she was having well in the hospital. Echocardiogram was also performed which showed a normal ejection fraction and no significant valvular abnormalities. No right heart strain thus large PE unlikely Essential hypertension 05/20/2020 Assessment & Plan (05/21/2020 7:15 PM CDT): Stable. Was discharged home on no additional blood pressure medications COPD (chronic obstructive pulmonary disease) Assessment & Plan (05/21/2020 7:15 PM CDT): Stable, does not use any bronchodilators at home. Acid reflux 05/20/2020 Assessment & Plan (05/20/2020 6:31 PM CDT): Stable, continue home PPI Resolved Problems Problem Noted Date Diagnosed Date Resolved Date History of atrial fibrillation 05/20/2020 07/21/2020 Assessment & Plan (05/21/2020 7:14 PM CDT): , patient was remained stable in the hospital heart rates were slightly low in the 40s to 50s at times, cardiology decreased her home propafenone to twice a day instead of the 3 times a day that she had been taking prior. She will follow-up with cardiology as an outpatient Tobacco use disorder, continuous 05/20/2020 07/21/2020 Assessment & Plan (05/20/2020 6:31 PM CDT): Current everyday tobacco user. Tobacco use in education consulted. Encourage cessation. Surgical History Surgery Date Site/Laterality Comments STOMACH SURGERY CARDIAC CATHETERIZATION 11/07/2019 - 11/06/2020 Medical History Medical History Date Comments Arthritis CHF (congestive heart failure) (HCC) COPD (chronic obstructive pulmonary disease) (HC C) Hypertension Nonocclusive coronary atherosclerosis of [place] coronary artery 07/21/2020 Atrial fibrillation (HCC) Chest pain Sick sinus syndrome (HCC) Family History Medical History Relation Name Comments Cancer Mother Heart disease Mother Heart failure Mother Hyperlipidemia Mother Hypertension Mother Heart disease Sister Heart failure Sister Hyperlipidemia Sister Hypertension Sister Relation Name Status Comments Mother Sister Social History Tobacco Use Types Packs/Day Years Used Date Smoking Tobacco: Every Day Cigarettes 0 Smokeless Tobacco: Never Tobacco Cessation:Ready to Q uit: No; Counseling Given: Yes Alcohol Use Standard Drinks/Week Comments Never 0 (1 standard drink = 0.6 oz pur e alcohol) AUDIT-C Answer Date Recorded Q1: How often do you have a drink containing alc ohol? 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 DIRECTOR Gender Identity Not on file Sexual Orientation Not on file Obstetrics History Last Filed Vital Signs Vital Sign Reading Time Taken Comments Blood Pressure 134/76 04/07/2022 10:33 AM CDT Pulse 67 04/07/2022 10:33 AM CDT Temperature 36.6 C (97.9 F) 01/19/2021 10:04 AM CDT Respiratory Rate 14 01/19/2021 10:04 AM CDT Oxygen Saturation 96% 04/07/2022 10:33 AM CDT Inhaled Oxygen Concentration - - Weight 72.1 kg (159 lb) 04/07/2022 10:33 AM CDT Height 165.1 cm (5' 5 ) 04/07/2022 10:33 AM CDT Body Mass Index 26.46 04/07/2022 10:33 AM CDT Plan of Treatment Health Maintenance Due Date Last Done Comments Depression Screening 1945 Osteoporosis Screening-Bone Density Scan 1945 DTaP/Tdap/Td Vaccine (1 - Tdap) 1954 Hepatitis B Screening 1961 Zoster Vaccine (1 of 2) 1993 Well Visit 65+ 2008 Pneumococcal vaccine 65+ (2 of 2 - PCV) 09/11/2015 09/11/2014 Fall Risk Assessment 05/21/2021 05/21/2020 Influenza Vaccine (Season Ended) 2025 09/12/2018, 09/13/2017, 09/09/2015, Additional history exists Medical Devices Implanted Type Area Medical Billing Associate Device Identifier Shelf Expiration Date Model / Serial / Lot [employer] [id number] Angio-Seal Evolution 6fr .035in Guidewire Bypass Tube Suture - [id number] Implanted:Qty: 1 on 05/21/2020 by Clement Centeno MD at [facility] [employer] 12/07/2020 [id number] / / [id number] Insurance MEDICARE COMMERCIAL [facility] MEDICARE Advance Directives For more information, please contact: [phone] Documents on File Type Date Recorded Patient Software Licensing Executive Expl anation ADVANCE DIRECTIVE 05/22/2020 11:29 AM Ingrid r of [employer]--Medical * Full Code (Latest Code Status on File) Date Activated Date Inactivated Comments 05/20/2020 5:48 PM 05/21/2020 10:31 PM Care Teams Machine I Trimmer Relationship Specialty Start Date End Date Stanford Padilla MD PCP - General 07/11/08
--- OUTSIDE RECORDS SUMMARY | 2025-02-13 07:43 | XMS_ITS | Encounter Summary ---
Author Organization [facility] Address [facility] [place] [address] Care Team Providers Care Cloth Measurer Machine Name Role Phone Stanford Padilla MD Primary Care Provider [phone] Elyssa Villalobos MD Unavailable Encounter Details Date Type Department Care Team (Late Contact Info) Description 02/14/2020 Telephone [facility] [address] [place] [address] Alice Cruz, [facility] [address] Social History Tobacco Use Types Packs/Day Years Used Date Smoking Tobacco: Every Day Cigarettes Smokeless Tobacco: Never Alcohol Use Standard Drinks/Week Comments Yes 0 (1 standard drink = 0.6 oz pur e alcohol) Comments Unknown Sex and Gender Information Value Date Recorded Sex Assigned at Female 12/27/2024 3:08 PM 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 FOR PLASTIC Legal Sex Female 3:35 AM CDT Gender Identity Not on file Sexual Orientation Not on file 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 Job 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 [employer] Not on file Not on file Not on file documented as of this encounter Plan of Treatment Upcoming Encounters Date Type Department Care Team (Late Contact Info) Description 08/07/2025 9:00 AM CDT Office Visit [facility] [place] [phone] Elyssa Villalobos MD [address] [place] [id number] documented as of this encounter Visit Diagnoses Not on filedocumented in this encounter Care Teams Cloth Measurer Machine Relationship Specialty Start Date End Date Stanford Padilla MD [address] [place] [id number] PCP - General INTERNAL MEDICINE 03/08/17 Elyssa Villalobos MD [address] [place] [address] Consulting Physician CARDIOVASCULAR DISEASE 06/05/24 documented as of this encounter
--- OUTSIDE RECORDS SUMMARY | 2025-02-13 07:43 | XMS_ITS | Clinical Summary ---
Author Organization [facility] Address [address] [address] Phone Care Team Providers Care Hog Sawyer Name Role Phone Stanford Padilla MD Primary Care Provider [phone] Allergies Active Allergy Reactions Criticality Noted Date Comments Clavulanic Acid Other (see Comments) 03/29/2021 fatigued Iodine Unknown 03/10/2017 Montelukast Other (see Comments) 03/29/2021 Abdominal pain Triamcinolone Other (see Comments) 04/16/2016 Medications pravastatin (PRAVACHOL) 20 MG Tablet Take 20 mg by mouth daily. Active propafenone (RYTHMOL) 150 MG Tablet Take 150 mg by mouth every 8 hours. Active losartan 100 MG TABS 100 mg, hydroCHLOROthiazide 25 MG TABS 25 mg Take by mouth nightly. Active ALPRAZolam (XANAX) 0.5 MG Tablet Take 0.5 mg by mouth as needed. 02/05/20 16 Active pantoprazole (PROTONIX) 40 MG Tablet Delayed Response Take 40 mg by mouth daily. Active Inulin (FIBER CHOICE PO) Take by mouth daily. Benefiber Active aspirin EC 81 MG Tablet Delayed Response Take 81 mg by mouth daily. Active potassium chloride CR (KLORCON) 10 MEQ Tablet Controlled Release 07/17/20 21 Active Active Problems Problem Noted Date Diagnosed Date Diverticulitis of large inte rauqel with perforation without abscess or bleeding 04/28/2021 Hypercholesteremia 03/29/2021 GERD (gastroesophageal reflux disease) HTN (hypertension) 03/29/2021 Paroxysmal A-fib 03/29/2021 COPD (chronic obstructive pulmonary disease) Resolved Problems Problem Noted Date Diagnosed Date Resolved Date Bowel perforation 03/29/2021 04/01/2021 Diverticulitis 03/29/2021 04/01/2021 Hypokalemia 03/29/2021 04/01/2021 Family History Medical History Relation Name Comments Congestive Heart Failure Brother 1 Cel[place] No Known Problems Brother 2 Flex No Known Problems Father Congestive Heart Failure Mother Skin Cancer Mother No Known Problems Sister 1 [place] Breast Cancer Sister 2 [place] No Known Problems Sister 3 Syeda Breast Cancer Sister 4 Chani No Known Problems Son 1 No Known Problems Son 2 Relation Name Status Comments Brother 1 Celso Brother 2 Flex Father Mother Sister 1 Kiara Sister 2 chkeo Sister 3 Syeda Sister 4 Chani Son 1 Alive Son 2 Alive Social History Tobacco Use Types Packs/Day Years Used Date Smoking Tobacco: Every Day Cigarettes 0.5 40.8 Started: 04/28/1984 Smokeless Tobacco: Never Alcohol Use Standard Drinks/Week Comments Not Currently 0 (1 standard drink = 0.6 oz pur e alcohol) Sexually Active Control Partners Comments Not Currently Male Comments Unknown Sex and Gender Information Value Date Recorded Sex Assigned at Not on file Legal Sex Female 5:59 PM CDT Gender Identity Not on file Sexual Orientation Not on file Last Filed Vital Signs Vital Sign Reading Time Taken Comments Blood Pressure 142/88 08/10/2021 9:14 AM CDT Pulse 56 08/10/2021 9:14 AM CDT Temperature 36 C (96.8 F) 08/10/2021 9:14 AM CDT Respiratory Rate 18 08/10/2021 9:14 AM CDT Oxygen Saturation 97% 08/10/2021 9:14 AM CDT Inhaled Oxygen Concentration - - Weight 76.5 kg (168 lb 9.6 oz) 08/10/2021 9:14 A M CDT Height 165.1 cm (5' 5 ) 08/10/2021 9:14 AM CDT Body Mass Index 28.06 08/10/2021 9:14 AM CDT Plan of Treatment Health Maintenance Due Date Last Done Comments Hepatitis C Virus (HCV) Screening 1945 TdaP Immunization 1945 Cologuard 1993 Immunochemical Fecal Occult Blood 1993 Zoster Immunization (1 of 2) 1993 Respiratory Syncytial Virus (RSV) Immunization (Adult) (1 - 1-dose 75+ series) 2018 Influenza Immunization (#1) 07/08/202407/08, 09/12/2018, 09/13/2017, Additional history exists SARS-COV-2 Immunization ( season) 2024 11/01/2021, 02/08/2021 Colonoscopy High Risk 06/01/2026 06/01/2021, 021 Colorectal Cancer Screening 06/01/2026 Colonoscopy 06/01/2031 06/01/2021 Pneumococcal Immunization (50+ years) Completed 09/16/2020, 09/11/2014 Hepatitis B Immunization Aged Out No longer eligible based on patient's age to complete this topic Meningococcal Immunization (ACWY) Aged Out No longer eligible based on patient's age to complete this topic Rotavirus Immunization Aged Out No lo nger eligible based on patient's age to complete this topic Insurance MEDICARE COMMERCIAL GENERIC Advance Directives * Full Code (Latest Code Status on File) Date Activated Date Inactivated Comments 03/29/2021 10:35 PM 04/01/2021 2:32 PM CPR-Full Tr eatment: FULL ARREST: Attempt Resuscitation/CPR wit intubation and mechanical ventilation. PRE-ARREST: Use entire range of life support measures to stabilize the patient. Care Teams Hog Sawyer Relationship Specialty Start Date End Date Stanford Padilla MD [address] [place] [address] PCP - General Internal Medicine 03/31/21
--- OUTSIDE RECORDS SUMMARY | 2025-02-13 07:43 | XMS_ITS | Clinical Summary ---
Author Organization [facility] Address Formerly [facility], [id number] [place] [address] Care Team Providers Care Coding Manager Name Role Phone Stanford Padilla MD Primary Care Provider [phone] Elyssa Silva MD Unavailable Allergies Active Allergy Reactions Criticality Noted Date Comments Amoxicillin-Pot Clavulanate Unknown 06/05/2024 Abdominal pain Iodine Unknown 03/10/2017 Meloxicam Other (see comment) 06/05/2024 High blood pressure Montelukast Fatigue 04/16/2016 Triamcinolone Other (see comment) 04/16/2016 Verapamil Diarrhea 06/05/2024 Abdominal pain Medications ALPRAZolam 0.5 MG tablet alprazolam tablet 0.5 mg; take 1 tablet by mouth 1-2 times per week as needed; 0; -Jan-2016; Active 6 Active aspirin 81 MG chewable tablet Chew 1 tablet (81 mg total) by mouth every other day. 6 Active pravastatin 20 MG tablet pravastatin tablet 20 mg; take 1 tablet by mouth at bedtime; 0; -Dec-2015; Active 6 Active propafenone 150 MG tablet Take 1 tablet (150 mg total) by mouth 2 (two) times a day. 6 Active losartan-hydro chlorothiazide 100-25 MG tablet 7 Active pantoprazole 40 MG tablet Take 1 tablet (40 mg total) by mouth daily. Active meclizine 12.5 MG tablet Take 1 tablet (12.5 mg total) by mouth 3 (three) times daily as needed. Active escitalopram (LEXAPRO) 5 MG tablet Take 1 tablet (5 mg total) by mouth daily. Active felodipine ER (PLENDIL) 5 MG 24 hr tablet Take 1 tablet (5 mg total) by mouth daily. 30 tablet 11 4 Active hydrALAZINE (APRESOLINE) 25 MG tablet Take 1 tablet (25 mg total) by mouth 2 (two) times a day. 60 tablet 11 4 Active rivaroxaban (XARELTO) 20 MG Tab tablet Take 1 tablet (20 mg total) by mouth daily with supper. Take with food 30 tablet 11 5 Active apixaban (ELIQUIS) 2.5 MG tablet Take 1 tablet (2.5 mg total) by mouth 2 (two) times daily. 02/05/20 25 Discontin ued(Order ing Physician ) Active Problems Problem Noted Date Diagnosed Date Precordial pain 08/13/2017 Tobacco abuse 08/13/2017 Atrial fibrillation ([facility]) COPD (chronic obstructive pu lmonary disease) ([facility]) HTN (hypertension) HLD (hyperlipidemia) Skin cancer Sleep apnea GERD (gastroesophageal reflux disease) Arthralgia Encounters Date Type Department Care Team Description 02/05/2025 Telephone [facility] [address] [place] [address] Elyssa Silva MD Appointment Request 02/04/2025 Orders Only [facility] [address] [place] [address] Elyssa Silva MD 02/01/2025 Telephone [facility] [address] [place] [address] Elyssa Silva MD Medication Question 01/28/2025 2:45 PM CDT Office Visit [facility] [address] [place] [id number] Elyssa Silva MD Heart Problem 01/28/2025 1:54 PM CDT - 01/28/2025 11:59 PM CDT Hospital Encounter [facility] [address] [place] [address] Elyssa Silva MD Discharge Disposition: Home or Self Care (Routine Discharge) 01/28/2025 Travel 01/25/2025 Telephone [facility] [place] [address] [address] Elyssa Silva MD Appointment Reminder 12/27/2024 3:06 PM TOY MAKER - 12/27/2024 4:00 PM TOY MAKER Emergency [facility] [address] [place] [address] [place] [address] Juan Pablo Landrum DO Fall Discharge Disposition: Home or Self Care (Routine Discharge) 12/27/2024 Travel from Last 3 Months Family History Medical History Relation Comments CHF Mother COPD Sister Relation Status Comments Mother Sister Social History Tobacco Use Types Packs/Day Years Used Date Smoking Tobacco: Every Day Cigarettes Smokeless Tobacco: Never Alcohol Use Standard Drinks/Week Comments Not Currently 0 (1 standard drink = 0.6 oz pur e alcohol) Comments Unknown Sex and Gender Information Value Date Recorded Sex Assigned at Female 12/27/2024 3:08 PM TOY MAKER Legal Sex Female 3:35 AM CDT Gender Identity Not on file Sexual Orientation Not on file 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 [employer] 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 file Not on file Not on file Last Filed Vital Signs Vital Sign Reading Time Taken Comments Blood Pressure 134/88 01/28/2025 4:18 PM CDT Pulse 64 01/28/2025 4:18 PM CDT Temperature 36.6 C (97.8 F) 12/27/2024 3:01 PM TOY MAKER Respiratory Rate 16 01/28/2025 4:18 PM CDT Oxygen Saturation 96% 01/28/2025 4:18 PM CDT Inhaled Oxygen Concentration - - Weight 67.9 kg (149 lb 12.8 oz) 01/28/2025 4:18 PM CDT Height 165.1 cm (5' 5 ) 01/28/2025 4:18 PM CDT Body Mass Index 24.93 01/28/2025 4:18 PM CDT Plan of Treatment Upcoming Encounters Date Type Department Care Team (Late st Contact Info) Description 08/07/2025 9:00 AM CDT Office Visit [facility] [place] [address] [place] [id number] Elyssa Silva MD [address] [place] [address] Health Maintenance Due Date Last Done Comments ASCVD Statin 1945 DTaP, Tdap and Td Vaccines ( 1 - Tdap) 1962 Annual Medicare Wellness Visit 2008 Dexa Scan (General) 2008 COVID-19 Vaccine (3 - 2023-2 5 season) 2024 11/01/2021, 02/08/2021 Pneumococcal Vaccine: 65+ Years Completed 09/16/2020, 09/11/2014 RSV Immunization or 60+ Years Completed 02/13/2024 Zoster Vaccines Completed 04/03/2024, 01/21/2024 Meningococcal B Vaccine Aged Out No l onger eligible based on patient's age to complete this topic Meningococcal Vaccine Aged Out No yecenia dominic eligible based on patient's age to complete this topic RSV Immunizations Under 20 Months Aged Out No longer eligible b ased on patient's age to complete this topic Procedures Procedure Name Priority Date/Time Associated Diagnosis Comments ECG 12-LEAD Routine 01/28/2025 2:06 PM CDT Atrial fibrillation ([facility]) XR PELVIS 1 OR 2 VIEWS STAT 12/27/2024 3:25 PM TOY MAKER from Last 3 Months Results * ECG 12-Lead (01/28/2025 2:06 PM CDT) 01/28/2025 2:06 PM CDT Narrative [facility] - 01/28/2025 9:44 PM CDT [place] [address] [place] [address] Test Date: 2025-01-28 Pat Name: KATHE COLLIER Department: 3 Room: Gender: Female Gutter Installer: : 1945 Requested By: ELYSSA SILVA Order Number: [id number] Reading MD: Elyssa Silva Measurements Intervals [place] Rate: 60 P: 75 WI: 183 QRS: 61 QRSD: 95 T: 121 QT: 412 QTc: 412 Interpretive Statements SINUS RHYTHM WITH OCCASIONAL SUPRAVENTRICULAR PREMATURE COMPLEXES ST DEVIATION AND MODERATE T-WAVE ABNORMALITY, CONSIDER LATERAL ISCHEMIA [-0.1+ mV T WAVE IN I/aVL/V5/V6] Procedure Note Elyssa Silva MD - 01/28/[address] [place] [address] Test Date: 2025-01-28 Pat Name: KATHE COLLIER Department: 3 Room: Gender: Female Gutter Installer: : 1945 Requested By: ELYSSA SILVA Order Number: [id number] Reading MD: Elyssa Silva Measurements Intervals [place] Rate: 60 P: 75 WI: 183 QRS: 61 QRSD: 95 T: 121 QT: 412 QTc: 412 Interpretive Statements SINUS RHYTHM WITH OCCASIONAL SUPRAVENTRICULAR PREMATURE COMPLEXES ST DEVIATION AND MODERATE T-WAVE ABNORMALITY, CONSIDER LATERAL ISCHEMIA [-0.1+ mV T WAVE IN I/aVL/V5/V6] us Elyssa Silva MD ECG ORDERABLES Final Result Performing Organization Address City/State/[facility] Co de Phone Number [facility] * XR PELVIS 1 OR 2 VIEWS (12/27/2024 3:25 PM TOY MAKER) Anatomical Region Laterality Modality Pelvis Radiographic Georgette ging 12/27/2024 3:27 PM TOY MAKER Impressions 12/27/2024 3:30 PM TOY MAKER IMPRESSION: No acute findings. Ordered By: JUAN PABLO LANDRUM Interpreted By: Randal Daniel MD, 12/27/2024 3:27 PM Narrative 12/27/2024 3:30 PM TOY MAKER [address] [place] [address] Examination: Pelvis. Exam time: 1504 hours. Clinical history: Pain after a fall. Comparison: None. Technique: Weightbearing AP view. Findings: No fracture, dislocation or other acute bony abnormality is identified. There are moderate symmetric degenerative changes in the hips manifested by joint space narrowing and acetabular osteophyte formation. Degenerative changes are evident in the lower lumbar spine as well. No other significant bone or joint abnormality is noted. No acute soft tissue abnormality. Surgical clips in the pelvis noted. Procedure Note Randal Daneil MD - 12/27/2024 [facility] [address] [place] [address] Examination: Pelvis. Exam time: 1504 hours. Clinical history: Pain after a fall. Comparison: None. Technique: Weightbearing AP view. Findings: No fracture, dislocation or other acute bony abnormality isidentified. There are moderate symmetric degenerative changes in the hipsmanifested by joint space narrowing and acetabular osteophyte formation.Degenerative changes are evident in the lower lumbar spine as well. Noother significant bone or joint abnormality is noted. No acute soft tissueabnormality. Surgical clips in the pelvis noted. IMPRESSION: No acute findings. Ordered By: JUAN PABLO LANDRUM Interpreted By: Randal Daniel MD, 12/27/2024 3:27 PM Juan Pablo Landrum DO GENERAL IMAGING Final Result from Last [address] [address] INSURANCE MEDICARE MEDICARE MEDICAL REIMBURSEMENTS OF [facility] Care Teams Coding Manager Relationship Specialty Start Date End Date Stanford Padilla MD [address] [place] [address] PCP - General INTERNAL MEDICINE 03/08/17 Elyssa Silva MD [address] [place] [address] Consulting Physician CARDIOVASCULAR DISEASE 06/05/24
--- OUTSIDE RECORDS SUMMARY | 2025-02-13 07:43 | XMS_ITS | CONTINUITY OF CARE DOCUMENT ---
Author Name christel, christel Address Unknown Organization [facility] Address [address] [place] [address] Phone [phone] Care Team Providers Care Orthopedic Mechanic Name Role Phone Mindy White MD Unavailable CHANTAL VALDES MD Unavailable CHANTAL VALDES MD Unavailable [phone] PROBLEMS Condition Status Date Provider Notes AFIB - S/P ABLATION, NO RECURRENCE active M alina White MD HYPERCHOLESTEROLEMIA active Mindy White MD HYPERTENSION active Mindy White MD ENCOUNTERS Date Type Provider Location Encounter Diag nosis - In-person encounter Office Visit Mindy White MD [facility] - In-person encounter Office Visit Mindy White MD [facility] AFIB - S/P ABLATION, NO RECURRENCEHYPERCHOLESTEROLEMIAHYPERTENSION VITAL SIGNS Date Observation Value Provider Body Mass Index (Ratio) 28.29 kg/m2 Yessenia White MD blood pressure, diastolic 82 mm[Hg] Osbaldo White MD blood pressure, systolic 124 mm[Hg] Jude White MD pulse rate 72 /min Mindy White MD oxygen saturation, oximetry 95 % Mindy White MD respiratory rate E&M 16 /min Bishnu White MD weight E&M 170 [lb_av] Mindy White MD height E&M 65 [in_i] Mindy White MD blood pressure, diastolic 72 mm[Hg] Osbaldo White MD blood pressure, systolic 140 mm[Hg] Jude White MD oxygen saturation, oximetry 94 % Mindy White MD pulse rate 98 /min Mindy White MD weight E&M 180 [lb_av] Mindy White MD ALLERGIES No Known Drug Allergies RESULTS Date Observation Value Provider Reference Range Interpretation Location platelet count 279 10*3/mm3 [facility] hematocrit, blood 47.0 % [facility] triglyceride, serum, fasting 123 mg/dL [facility] HDL cholesterol, serum 82 mg/dL [facility] cholesterol/HDL ratio, serum 2.8 [facility] lipoprotein, beta, serum, point, quantitative, calculated 119 mg/dL [facility] cholesterol, serum 226 mg/dL [facility] alanine aminotransferase (SGPT), serum 23 1/L [facility] aspartate aminotransferase (SGOT), serum 14 1/L [facility] creatinine, serum 0.82 mg/dL [facility] potassium, serum 4.1 mmol/L [facility] sodium, serum 140 mmol/L [facility] alanine aminotransferase (SGPT), serum 23 1/L [facility] aspartate aminotransferase (SGOT), serum 17 1/L [facility] creatinine, serum 0.84 mg/dL [facility] potassium, serum 4.4 mmol/L [facility] sodium, serum 139 mmol/L [facility] HISTORY OF MEDICATION USE Medication Status Instructions Dates Provider Indications Com ments ALPRAZOLAM 0.5 MG ORAL TABLET active BID Mindy White MD ASPIR-81 81 MG ORAL TABLET DELAYED RELEASE active Mindy White MD PROPAFENONE HCL 150 MG ORAL TABLET active 3 times daily Mindy evans MD PRAVACHOL 20 MG ORAL TABLET active hs Mindy White MD LISINOPRIL-HYDROCH LOROTHIAZIDE 20-12.5 MG ORAL TABLET active qd Mindy White MD SOCIAL HISTORY Date Observation Value Provider social history reviewed E&M revi ewed - no changes required Mindy White MD smoking status current every day smoker M alina White MD social history E&M Marital Statu s: L natalie with family/friends E thnicity: J ob Status: Retired Mindy White MD social history reviewed E&M reviewed Mindy White MD MENTAL STATUS Date Observation Value Provider assessment of judgme nt and insight E&M Alert and oriented to time, place and person. Mood and affect are normal. Mindy White MD FAMILY HISTORY Family Member Condition Father Family History Unkno wn INSURANCE PROVIDERS Payer name Policy type / Coverage type [place] red constitution party ID [id number] [place] MED[place] Medicare [id number] TREATMENT PLAN Date Name Performer faxed to pcp Mindy Mackenzie faxed to pcp: H er updated medication list for this problem includes: Lisinopril-hydrochlorothiazide 20-12.5 Mg Tabs (Lisinopril-hydrochlorothiazide) ..... Qd Aspir-81 81 Mg Tbec (Aspirin) Mindy White MD faxed to pcp: H er updated medication list for this problem includes: Lisinopril-hydrochlorothiazide 20-12.5 Mg Tabs (Lisinopril-hydrochlorothiazide) ..... Qd Propafenone Hcl 150 Mg Tabs (Propafenone hcl) ..... 3 times daily Aspir-81 81 Mg Tbec (Aspirin) Mindy White MD
--- OUTSIDE RECORDS SUMMARY | 2025-02-13 07:43 | XMS_ITS | Referral Summary ---
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 Encourage cessation. 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 Gender Identity Not on file Sexual Orientation [...] 04/07/2022 10:33 AM CDT Plan of Treatment Not on file Medical Devices Implanted Type Area Bottle Sorter Device Identifier Shelf Expiration Date Model / Serial / Lot [employer] [id number] Angio-Seal Evolution 6fr .035in Guidewire Bypass Tube Suture - [id number] Implanted:Qty: 1 on 05/21/2020 by Clement Centeno MD at [facility] [employer] 12/07/2020 [id number] / / [id number] Insurance MEDICARE COMMERCIAL GENERIC MEDICARE Advance Directives For more information, please contact: [phone] Documents on File Type Date Recorded 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
[2025-02-13 08:07] LABS: Estimated Glomerular Filt Rate > 60
== END 2025-02-13 07:39 | disposition home or self-care (01) ==
LOC: CHSIMG 07:41
PROVIDERS: PCP Internal Medicine; Visit Provider Internal Medicine
DX: R10.9 Unspecified abdominal pain (principal)
CPT/HCPCS: 74160; Q9967

== ENCOUNTER 2025-06-12 13:28 | Outpatient (CLI) | payer MEDICARE, SELFPAY ==
--- OUTSIDE RECORDS SUMMARY | 2025-06-12 13:39 | XMS_ITS | Clinical Summary ---
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 07/21/2020 Atrial fibrillation (HCC) Chest [...] on file 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 Gender Identity Not on file Sexual Orientation [...] 10:33 AM CDT Height 165.1 cm (5' 5) 04/07/2022 10:33 AM CDT Body Mass Index 26.46 04/07/2022 10:33 AM CDT Plan of Treatment Not on file Medical Devices Implanted Type Area Data Processor Device Identifier Shelf Expiration Date Model / Serial / Lot [employer] [id number] Angio-Seal Evolution 6fr .035in Guidewire Bypass Tube Suture - [id number] Implanted:Qty: 1 on 05/21/2020 by Clement Centeno MD at [facility] [employer] 12/07/2020 [id number] / / [id number] Insurance MEDICARE COMMERCIAL [facility] MEDICARE Advance Directives For more information, please contact: [phone] Documents on File Type Date Recorded Patient Cap Jewel Plate Assembler Expl anation ADVANCE DIRECTIVE 05/22/2020 11:29 AM Ingrid r of Line Controller--Medical * Full Code (Latest Code Status on File) Date Activated Date Inactivated Comments 05/20/2020 5:48 PM 05/21/2020 10:31 PM Care Teams Undercutter Operator Relationship Specialty Start Date End Date Stanford Padilla MD PCP - General 07/11/08
--- OUTSIDE RECORDS SUMMARY | 2025-06-12 13:40 | XMS_ITS | Clinical Summary ---
Author Organization [facility] Address [address] [place] [address] Phone Care Team Providers Care Critical Care Clinical Nurse Specialist Name Role Phone Stanford Padilla MD Primary Care Provider [phone] Allergies Active Allergy Reactions Criticality Noted Date [...] Date Diagnosed Date Diverticulitis of large inte raquel with perforation without abscess or bleeding 04/28/2021 [...] Father Mother Sister 1 Kiara Sister 2 cheko Sister 3 Syeda Sister 4 Chani Son 1 Alive Son 2 Alive Social History Tobacco Use Types Packs/Day Years Used Date Smoking Tobacco: Every Day Cigarettes 0.5 41.1 Started: 04/28/1984 Smokeless Tobacco: Never Alcohol Use [...] A M CDT Height 165.1 cm (5' 5) 08/10/2021 9:14 AM CDT Body Mass Index 28.06 08/10/2021 9:14 AM CDT Plan of Treatment Health Maintenance Due Date Last Done Comments Hepatitis C Virus (HCV) Screening 1945 TdaP Immunization 1945 Cologuard 1988 Immunochemical Fecal Occult Blood 1988 Zoster Immunization (1 of 2) 1993 Respiratory Syncytial Virus (RSV) Immunization (Adult) (1 - 1-dose 75+ series) 2018 SARS-COV-2 Immunization ( season) 2024 11/01/2021, 02/08/2021 Influenza Immunization (#1) 07/08/202507/08, 09/12/2018, 09/13/2017, Additional history exists Colonoscopy 06/01/2031 06/01/2021 Colorectal Cancer Screening 06/01/2031 Pneumococcal Immunization (50+ years) Completed 09/16/2020, 09/11/2014 Hepatitis B Immunization Aged Out No longer eligible based on patient's age to complete this topic Human Papillomavirus (HPV) Immunization Aged Out No longer eligible based [...] measures to stabilize the patient. Care Teams Critical Care Clinical Nurse Specialist Relationship Specialty Start Date End Date Stanford Padilla MD [address] [place] [address] PCP - General Internal Medicine 03/31/21
--- OUTSIDE RECORDS SUMMARY | 2025-06-12 13:40 | XMS_ITS | Patient Health Record ---
Author Organization [facility] Address [address] [place], [place] [address] Care Team Providers Care Apprentice Plant Attendant Name Role Phone MARIBEL LEONG Unavailable [phone] Stanford Padilla Unavailable Unavailable Reason For Referral No Information Plan Of Treatment No Information Insurance Providers Payer Name Payer Address Payer Phone Subscriber Number Group Number Insured Name Patient Relationship to Insured Coverage Start Date Coverage End Date Medicare Part B [place] [address] [place] [address] [id number] SHUN JARRETT Self - patient is the insured [place] [employer] [facility] [employer] [address] [address] [place] [address] [id number] SHUN JARRETT Self - patient is the insured
[2025-06-12 14:13] LABS: Alanine Aminotransferase 21 U/L (6-35); Albumin Level 4.6 g/dL (3.5-5.1); Alkaline Phosphatase 62 U/L (38-126); Anion Gap 7 mmol/L (4-12); Aspartate Amino Transferase 29 U/L (14-36); Bilirubin,Total 0.5 mg/dL (0.2-1.3); Blood Urea Nitrogen 10 mg/dL (7-17); Calcium 10.1 mg/dL (8.4-10.2); Carbon Dioxide 25 mmol/L (22-30); Chloride 102 mmol/L (98-107); Estimated Glomerular Filt Rate > 60; Glucose 94 mg/dL (65-110); Magnesium 1.9 mg/dL (1.6-2.3); Osmolality Calculated 277 mOsm/kg (285-295); Potassium 3.6 mmol/L (3.4-5.0); Sodium 134 mmol/L (137-145); Total Protein 6.5 g/dL (6.3-8.2)
== END 2025-06-12 13:29 | disposition home or self-care (01) ==
PROVIDERS: PCP Internal Medicine; Visit Provider Internal Medicine
DX: E87.1 Hypo-osmolality and hyponatremia (principal); E87.6 Hypokalemia
CPT/HCPCS: 36415; 80053; 83735

== ENCOUNTER 2025-09-07 07:38 | Outpatient (CLI) | payer MEDICARE, SELFPAY ==
--- NOTE | ~2025-09-07 | MR_ITS ---
EXAMINATION: MR lumbar spine wo con DATE: 09/07/2025 08:15 INDICATION: Low back pain. Fall. TECHNIQUE: Magnetic resonance imaging (MRI) of the lumbar spine was performed without intravenous contrast. Sequences included sagittal T2-weighted FSE, sagittal T2-weighted FS FSE, sagittal T1-weighted FSE, and axial T2-weighted FSE. COMPARISON: Lumbar spine MRI 06/30/2024 FINDINGS: There is 8 degrees dextrocurvature of lumbar spine. There is 3 mm retrolisthesis of L2 on L3 and 4 mm retrolisthesis of L3 on L4. There is mild chronic anterior wedging of L1 vertebral body. There is moderately decreased disc height at L2-L3 and severely decreased disc height at L4-L5. The distal spinal cord signal intensity is normal. The conus medullaris is at T12-L1. There is a 7.1 cm cyst in right kidney. The following disc levels are specifically discussed: L1-L2: The disc is bulging and has an annular fissure. There is severe bilateral facet joint osteoarthritis. There is no neural foraminal stenosis. There is mild central canal stenosis. L2-L3: The disc is bulging and has an annular fissure. There is severe bilateral facet joint osteoarthritis. There is mild bilateral neural foraminal stenosis. There is mild central canal stenosis. L3-L4: The disc is bulging and has an annular fissure. There is moderate bilateral facet joint osteoarthritis. There is moderate bilateral neural foraminal stenosis. There is mild central canal stenosis. L4-L5: The disc is bulging with superimposed left subarticular zone extrusion. There is severe bilateral facet joint osteoarthritis. There is severe right and moderate left neural foraminal stenosis. There is mild central canal stenosis at the midline. There is severe stenosis of left lateral recess. L5-S1: The disc is bulging. There is severe bilateral facet joint osteoarthritis. There is mild bilateral neural foraminal stenosis. There is mild central canal stenosis. IMPRESSION: 1. Severe lumbar spondylosis, mildly worsened from 06/30/2024. 2. Lumbar dextroscoliosis. Reviewed, dictated and finalized at location E.
== END 2025-09-07 07:39 | disposition home or self-care (01) ==
LOC: CHSIMG 07:39
PROVIDERS: PCP Internal Medicine; Visit Provider Physician Assistant Surgical
DX: M54.50 Low back pain, unspecified (principal); R20.0 Anesthesia of skin; M43.06 Spondylolysis, lumbar region; M41.86 Other forms of scoliosis, lumbar region
CPT/HCPCS: 72148